=== PATIENT | male | born 1940 | race Caucasian/White ===

== ENCOUNTER 2025-01-04 18:12 | Inpatient (IN) | payer OTHER, SELFPAY ==
[2025-01-04 14:01] VITALS: BP 159/82
[2025-01-04 14:50] LABS: INR 2.07; PT 23.8 Sec (11.4-14.6)
[2025-01-04 14:51] LABS: APTT 33.5 Sec (23.4-35.0)
[2025-01-04 14:55] LABS: ALT (SGPT) 22 U/L (0-50); AST (SGOT) 21 U/L (17-59); Albumin 4.6 g/dl (3.5-5.0); Alkaline Phosphatase 61 U/L (38-126); Blood Urea Nitrogen 22 mg/dl (9-20); Calcium 9.5 mg/dl (8.4-10.2); Carbon Dioxide 27 mmol/L (22-30); Chloride 99 mmol/L (98-107); Glucose 201 mg/dl (70-99); Potassium 3.7 mmol/L (3.5-5.1); Sodium 134 mmol/L (135-145); Total Protein 7.2 g/dl (6.3-8.2); eGFR > 60.00
[2025-01-04 15:26] LABS: Hematocrit 29.7 % (39.0-52.0); Hemoglobin 10.1 g/dL (13.0-18.0); Mean Corp Hgb Conc. 34.0 g/dL (33.0-37.0); Mean Corpuscular Volume 86.8 fL (80.0-94.0); Nucleated Red Blood Cells % 0 % (-); Platelet Count 298 10^3/uL (130-400); Red Cell Dist. Width 14.2 % (11.5-14.5)
--- NOTE | 2025-01-04 16:30 | ED.GENMED ---
History of Present Illness
General
Chief Complaint: Rectal Bleeding
Source: patient
Exam Limitations: none
Time Seen by Provider: 01/04/25 16:29
Nursing documentation reviewed up to this point in time: agreed with
History of Present Illness
History of Present Illness:
84-year-old male with history of TIA, A-fib on Coumadin 5 mg daily, HTN, NIDDM, presents with black stools and lightheadedness. The patient reports that these symptoms started last week. The following day noted black stools. PCP did out pt labs
and recommended stopping eating blueberries, blackberries ('I eat them every, a lot) which he did and the stool went back to regular brown color and has remained brown. Yesterday had walked a mile, felt well but today he's been feeling lightheaded.
Denies CP, SOB, abdominal pain.
He got a call from PCP today telling him his Hgb dropped 3 points from 3 months ago and referred him here for evaluation.
The patient recently had an echocardiogram and electrocardiogram, both reportedly normal. He is currently taking warfarin for atrial fibrillation, with dose adjustments based on INR levels, which was 2.7 on Wednesday at home.
Past History
Past History
ED Past Medical History: Arrthythmia (A-fib on Coumadin), HTN and NIDDM
ED Past Surgical History: Orthopedic
Social History
Tobacco: Non-smoker
Personal:
Living: with family
Employment: Retired
Review of Systems
Review of Systems
Allergies reviewed?: Yes
All Other Systems: ROS reviewed and negative except as documented in HPI and ROS
Phy Exam
Physical Exam
Physical Exam:
GENERAL: No acute distress. A&Ox3.
CONSTITUTIONAL: Afebrile.
EYES: clear, conjunctivae normal
ENMT: moist mucus membranes, Pharynx nl
RESPIRATORY: Regular respirations, nonlabored, lungs clear.
CARDIOVASCULAR: Regular rate and rhythm, no murmurs, no rubs.
GI: Soft, nontender, normal BS
Rectal: Soft brown stool hematest positive
MUSCULOSKELETAL: Moves with ease. Well perfused.
SKIN: Warm, dry, pink
PSYCH: Normal mood and affect. Well kept, interactive and appropriate
NEUROLOGIC: Awake, alert and oriented. No focal neurological deficits
Course
Orders/Labs/Results
Orders:
Orders
01/04/25 14:07
EKG [Electrocardiogram (*1)] Urgent
Reason for Study: Atrial Fibrillation
EKG- Treatment ONCE
01/04/25 14:11
Type+Screen Urgent
Complete Blood Count/With Diff Urgent
Comprehensive Metabolic Panel Urgent
PTT Urgent
Prothrombin Time Urgent
01/04/25 Dinner
Clear Liquid
At Your Request: Limited Participation
Does patient need a safe tray?: No
01/04/25 17:12
GASTROINTESTINAL CONSULT Urgent
Consulting Provider: Natty Krause
Was physician already notified: Yes
Reason for consult: GI bleed stable
01/04/25 17:22
Admit/Transfer Patient As Directed
Co-Sign Provider:
Level of Care: Inpatient admission
Assign to:: Medical/Surgical
Physician / Group: Ferny Morris
Diagnosis: GI bleed
Reason for Hospitalization: GI bleed
Expected length of stay greater than two midnights?: Yes
ELOS- Estimated Length of Stay in days: 3
I certify the patient meets the requirements for IP care: Yes
PRN Pain Medication Management As Directed
May give lesser potent ordered pain med per pt: Yes
preference::
Protocol:: Medication orders for pain may be administered in a
manner that supports deferring to patient preference
when the pt is:
- Requesting an ordered lesser potent pain medication.
Least to most potent pain medications are defined
as: acetaminophen < NSAID < tramadol < opioids
(morphine, oxycodone, hydromorphone).
- Requesting a lesser dose of the same medication IF
ORDERED.
- Requesting a less intrusive route of administration
if both routes are prescribed by the provider (PO <
IV).
01/04/25 17:23
Code Status As Directed
Resuscitation Status: Full Code
01/04/25 18:36
0.9% Sodium Chloride 1000 ml [Nss] 1,000 ml IV 75 mls/hr
Acetaminophen [Tylenol] 650 mg PO Q6HPRN PRN
Atorvastatin [Lipitor] 10 mg PO QPM
Dextrose 50%-Water [Dextrose 50% Syringe] 12.5 grams IV [id number] PRN
Digoxin [Lanoxin] 250 mcg PO QPM
Glucagon [GlucaGen] 1 mg IM PRN PRN
Ondansetron Injectable [Zofran] 4 mg IV Q6HPRN PRN
Tamsulosin [Flomax] 0.4 mg PO QPM
01/04/25 18:36
Activity As Directed
Activity Level: As Tolerated
Bedside Glucose Monitoring As Directed
Frequency: AC&HS
Additional Instructions:: Change to q6h if pt on TPN, tube feeding or not eating
INT (Intravenous Needle Therapy) As Directed
Comment: Place 2 IV catheters of the largest bore possible until stable
Orthostatic Vital Signs As Directed
Orthostatic VS Frequency: Now
Comment: then every four hours for twenty-four hours
Pneumatic Compression Sleeves As Directed
Type: Knee high
Vital Signs As Directed
Frequency: Per unit guidelines
DX Deep Vein Thrombosis Video Routine
01/04/25 19:00
Insulin Aspart Corrective Low [Novolog Flexpen-Low Resistance] See Protocol SC AC
Metformin Extended Release [Glucophage Xr Extended Release] 500 mg PO TID@0800,1200,1700
01/04/25 20:00
Pantoprazole [Protonix IV] 40 mg IV BID
01/04/25 22:00
Amlodipine [Norvasc] 10 mg PO HS
01/04/25 23:00
Complete Blood Count/No Diff Routine
01/05/25 Breakfast
NPO
Allow oral meds: Yes
Allow clear liquids: 4hrs prior to procedure
Comment: may have unrestricted clear liquid up to 4 hrs prior to scheduled procedure
Basic Metabolic Panel IN AM
Complete Blood Count/No Diff IN AM
Glycohemoglobin (HgbA1c) IN AM
01/05/25 08:00
Cyanocobalamin [Vitamin B-12] 1,000 mcg PO DAILY
Vitamin B Complex with C [B COMPLEX w/VITAMIN C] 1 caplet PO DAILY
olmesartan-hydrochlorothiazide [Benicar HCT] 1 tablet PO DAILY
Abnormal Lab Results
01/04/25
14:11
RBC 3.42 L 10^6/uL
(4.70-6.10)
Hgb 10.1 L g/dL
(13.0-18.0)
Hct 29.7 L %
(39.0-52.0)
Monocytes % 10.9 H %
(1.7-9.3)
PT 23.8 H Sec
(11.4-14.6)
Sodium 134 L mmol/L
(135-145)
BUN 22 H mg/dl
(9-20)
Glucose 201 H mg/dl
(70-99)
01/04/25 14:11
01/04/25 14:11
Vital Signs
Initial and Last Documented VS:
Initial Vital Signs
Temp Pulse Resp BP Pulse Ox
97.8 F 89 16 159/82 98
01/04/25 14:01 01/04/25 14:01 01/04/25 14:01 01/04/25 14:01 01/04/25 14:01
Last Documented Vital Signs
Temp Pulse Resp BP Pulse Ox
98.1 F 75 18 175/87 100
01/04/25 18:43 01/04/25 19:55 01/04/25 18:43 01/04/25 18:43 01/04/25 18:43
MDM/Problems Addressed
Differential Diagnosis Includes:
GI bleed, PUD, Coumadin toxicity
MDM/Problems Addressed:
84-year-old male with history of TIA, A-fib on Coumadin 5 mg daily, HTN, NIDDM, presents with black stools and lightheadedness. The patient reports that these symptoms started last week. The following day noted black stools. PCP did out pt labs and
recommended stopping eating blueberries, blackberries ('I eat them every, a lot) which he did and the stool went back to regular brown color and has remained brown. Yesterday had walked a mile, felt well but today he's been feeling lightheaded.
Denies CP, SOB, abdominal pain.
He got a call from PCP today telling him his Hgb dropped 3 points to 9.9 from 3 months ago and referred him here for evaluation.
The patient recently had an echocardiogram and electrocardiogram, both reportedly normal. He is currently taking warfarin for atrial fibrillation, with dose adjustments based on INR levels, which was 2.7 on Wednesday at home.
1615:
CBC: Hemoglobin 10.1
CMP: No clinically significant abnormality
INR 2.07
1700:
Patient is stable
Rectal exam: Brown stool hematest positive
Plan: Admit to hospitalist with GI consult
Blood consent signed and scanned into chart, GI consult in
Hospitalist notified of admission
*Pulse Oximetry
SaO2: 98
Oxygen Mode of Delivery: Room air
Patient hypoxic: no
*EKG
EKG Intrepretation Date: 01/04/25
Interpretation: abnormal
Heart Rate: 82
Rate: normal
Rhythm: a-fib
Rudyard: normal axis
QRS Pattern: normal QRS
Ischemia: no ischemia
*Critical Care Note
Total Time (30-74mins, 75-104mins- exclusive of procedures): Not Applicable
ED Attending Note
-
Portions of this chart may have been created with voice recognition software.� Occasional wrong word or��sound alike� substitutions may have occurred due to the inherent limitations of voice recognition software.
Discharge Plan
Departure
Patient Disposition: Admit
Date of Disposition: 01/04/25
Time of Disposition: 17:02
Admit to: Med/Surg
Presentation/result/management discussed w/ accepting MD/DO: Hospitalist
Condition: Good
Discharge Problem:
GIB (gastrointestinal bleeding)
Interventions
Interventions:
*Risk Screen - Suicide Last Done: 01/04/25 18:36
*General Assessment Last Done: 01/04/25 17:30
*Neglect/Abuse Screening Last Done: 01/04/25 14:01
*ED COVID-19 Vaccine History Last Done: 01/04/25 18:36
*Nursing Disposition Last Done: 01/04/25 18:27
IL-Jgcfef-Ybsdaeoprd Assessment Last Done: 01/04/25 17:30
ED- Cardiac Assessment Last Done: 01/04/25 17:30
ED- Pulmonary Assessment Last Done: 01/04/25 17:30
Discharge Date and Time
Discharge Date/Time: 01/04/25 18:28
[2025-01-04 17:00] VITALS: BP 155/75
--- NOTE | 2025-01-04 17:25 | HPS.HSE ---
Family Physician
-
Family Physician:
Chief Complaint
-
Black stool
History of Present Illness
Patient is a 84-year-old male with past medical history of essential hypertension, hyperlipidemia, history of TIA, history of A-fib on warfarin, nro-rdhyomb-cqofgskll diabetes mellitus, BPH came to ER with episode of melena which started last week.
Patient have history of gastroesophageal reflux in the past and has undergone EGD/colonoscopy few years back which was nonrevealing for any acute issues per verbal report from patient. Last week patient noticed narrowing of stool caliber with
blackish discoloration which cleared for last few days. No associated abdominal pain weight loss night sweats reported. No sonya blood reported.
No history of dizziness/palpitation/syncope. No other cardiopulmonary complaints.
Medical History
Past Medical History
Past Medical History: Reports Other
Additional Past Medical History:
history of essential hypertension, hyperlipidemia, history of TIA, history of A-fib on warfarin, lkj-qlgpryg-jlzqrornw diabetes mellitus, BPH
Past Surgical History: Reports Other
Social History
Tobacco: Non-smoker
Alcohol: Occasional
Drug: None
Personal:
Living: With Family
Family History
Family History: Not pertinent
Allergies / Home Medications
Allergies reflects when Allergies were last updated in [facility].
Home Medications with original date entered in [facility]
Allergy/Medication List:
Allergies
Allergy/AdvReac Type Severity Reaction Status Date / Time
No Known Allergies Allergy Unverified 01/04/25 14:06
Home Medications
acetaminophen 500 mg tablet (Tylenol Extra Strength) 500 mg PO Q6HPRN PRN headache 01/04/25
amlodipine 10 mg tablet (Norvasc) 10 mg PO HS 01/04/25
atorvastatin 10 mg tablet (Lipitor) 10 mg PO QPM 01/04/25
cyanocobalamin (vitamin B-12) 1,000 mcg tablet 1,000 mcg PO DAILY 01/04/25
digoxin 250 mcg (0.25 mg) tablet 250 mcg PO QPM 01/04/25
metformin 500 mg tablet,extended release 24 hr 500 mg PO TID 01/04/25
olmesartan 40 mg-hydrochlorothiazide 25 mg tablet (Benicar HCT) 1 tab PO DAILY 01/04/25
tamsulosin 0.4 mg capsule (Flomax) 0.4 mg PO QPM 01/04/25
vitamin B complex 1 tab PO DAILY 01/04/25
warfarin 2.5 mg tablet 2.5 mg PO MO@189901/04/25
warfarin 5 mg tablet 5 mg PO SUTUWETHFRSA@189901/04/25
Review of Systems
-
A 12 point ROS was completed and negative except as noted: Yes
Physical Exam
Vital Signs
Vital Signs
Temp Pulse Resp BP Pulse Ox
97.8 F 89 16 159/82 98
01/04/25 14:01 01/04/25 14:01 01/04/25 14:01 01/04/25 14:01 01/04/25 16:32
Physical Exam
General: No Apparent Distress
HEENT: Moist mucous membranes and Atraumatic
Respiratory: Clear
Cardiac: S1/S2 and Irregular Rhythm; No Murmur or Rub
GI: Soft, Non Tender and Non Distended; No Organomegaly
Rectal: Deferred by Provider
Musculoskeletal: No Clubbing, No Cyanosis and No Edema
Skin: No Rash
Neuro: Nonfocal/grossly intact
Laboratory Results
-
01/04/25 14:11
01/04/25 14:11
Laboratory Results
PT 23.8 Sec (11.4-14.6) H 01/04/25 14:11
INR 2.07 01/04/25 14:11
APTT 33.5 Sec (23.4-35.0) 01/04/25 14:11
Total Bilirubin 0.9 mg/dl (0.2-1.3) 01/04/25 14:11
AST 21 U/L (17-59) 01/04/25 14:11
ALT 22 U/L (0-50) 01/04/25 14:11
Alkaline Phosphatase 61 U/L (38-126) 01/04/25 14:11
Impression/Plan
-
1. Melena
Upper GI bleed
Exacerbated by warfarin coagulopathy
-Patient noticed melena last week, has cleared
-Stool heme test positive in ER
-No baseline hemoglobin to compare, in ER hemoglobin of 10 MCV of 87
-Patient have history of EGD/colonoscopy although no reported major issues per patient
-Start patient on IV Protonix 40 mg twice daily
-GI consultation
-Maintain on clear liquid diet for nighttime with n.p.o. past midnight
2. Ohl-fqlzwou-ldxggxbcd diabetes mellitus
-Reported diarrhea from metformin dose of which has been decreased recently
-Maintain current dose of metformin 500 mg 3 times daily and insulin sliding scale
3. Permanent A-fib
-INR 2.07, hold warfarin dosing
-Continue on home dose of digoxin
4. Essential hypertension
-Maintained on Norvasc/Benicar home dose
5. BPH
-Continue on Flomax
DVT prophylaxis -SCD
Full code
Total time spent : 79 mins
I personally saw and examined the patient.
I have reviewed all diagnostic interpretations and treatment plans as written.
Time includes patient management by me, time spent at the patients bedside, time to review lab and imaging results, discussing patient care, documentation in the medical record, and time spent with the family or caregiver and discussing care plan
with RN/Consultants.
[2025-01-04 18:20] VITALS: BMI 23.2
[2025-01-04 18:35] VITALS: BMI 22.4
[2025-01-04 18:43] VITALS: BP 175/87; BMI 22.4; BMI 22.5
--- NOTE | 2025-01-04 18:50 | PTCARENOTE ---
Received pt from ED into room 413-1. Pt ambulatory to bed with no assistance. Pt answered all admission questions, reports no questions at this time. Pt oriented to room. Educated pt on use of call mendosa, call mendosa within reach. No further complaints
at this time.
[2025-01-04 19:30] VITALS: BP 149/89; BP 159/82; BP 163/89; PULSE 67; PULSE 78; PULSE 83
[2025-01-04] MEDS: NSS (PRESERVATIVE FREE) 10 ML IV (19:35)
[2025-01-04] MEDS: PROTONIX IV 40 MG IV (19:35)
[2025-01-04] MEDS: FLOMAX 0.4 MG PO (19:36)
[2025-01-04] MEDS: NSS 1000 IV (19:36)
[2025-01-04] MEDS: GLUCOPHAGE XR EXTENDED RELEASE 500 MG PO (19:36)
[2025-01-04] MEDS: LIPITOR 10 MG PO (19:36)
[2025-01-04 19:52] LABS: Glucose - Point of Care 154 mg/dl (70-99)
[2025-01-04] MEDS: LANOXIN 250 MCG PO (19:55)
[2025-01-04 21:57] LABS: Glucose - Point of Care 167 mg/dl (70-99)
[2025-01-04 22:22] VITALS: BP 168/84
[2025-01-04] MEDS: NORVASC 10 MG PO (22:23)
[2025-01-04 23:56] LABS: Hematocrit 28.3 % (39.0-52.0); Hemoglobin 9.8 g/dL (13.0-18.0); Mean Corp Hgb Conc. 34.6 g/dL (33.0-37.0); Mean Corpuscular Volume 87.1 fL (80.0-94.0); Platelet Count 248 10^3/uL (130-400); Red Cell Dist. Width 14.2 % (11.5-14.5)
[2025-01-05 03:29] VITALS: BP 132/81; BP 142/76; BP 153/79; PULSE 70; PULSE 80
[2025-01-05 06:20] LABS: Glucose - Point of Care 184 mg/dl (70-99)
[2025-01-05] MEDS: NOVOLOG FLEXPEN-LOW RESISTANCE 1 UNITS SC ×3 (06:35→17:28)
[2025-01-05] MEDS: NSS 1000 IV (07:37)
[2025-01-05] MEDS: VITAMIN B-12 1000 MCG PO (07:37)
[2025-01-05] MEDS: BENICAR 40 MG PO (07:38)
[2025-01-05] MEDS: GLUCOPHAGE XR EXTENDED RELEASE PO (07:38)
[2025-01-05] MEDS: B COMPLEX w/VITAMIN C 1 CAPLET PO (07:38)
[2025-01-05] MEDS: ORETIC 25 MG PO (07:38)
[2025-01-05] MEDS: PROTONIX IV 40 MG IV ×2 (07:39→20:50)
[2025-01-05] MEDS: NSS (PRESERVATIVE FREE) 10 ML IV ×2 (07:39→20:50)
--- NOTE | 2025-01-05 08:03 | CON.GI ---
Addendum entered and electronically signed by Natty Krause MD 01/05/25 13:29:
I saw and examined the patient.
The SHADE CLASSIFIER or PA's note was reviewed and I agree with the note.
Comment:
This patient is an 84-year-old man with a history of atrial fibrillation on Coumadin, hypertension and hyperlipidemia who was admitted after he had a hemoglobin drop from his baseline 3 months ago. He states that he did notice some black stool last
week for several days but was eating blackberries. He no longer has any bowel changes. He does not have any abdominal pain. He does occasionally have GERD but that is not severe. He has had an upper endoscopy but in the very remote past. He
does not know the results
abd: soft, nontender
impression
melena
hx of UGIB
elevated INR
plan:
egd but INR is too high will trend
PPI bid
ok for diet
follow hgb
Original Note:
Consultation
-
Date/Time Consultation Requested: 01/04/2025 17:00
Date/Time Consultation Performed: 01/05/2025 08:00
Requesting Provider: Kamla Caceres V.
Performing Provider: Natty Krause
Reason for Consultation: GI bleed
Medical History
Chief Complaint / HPI
Chief Complaint: Black stools
History of Present Illness:
Hayder is an 84-year-old man with a past medical history of hypertension, hyperlipidemia, history of TIA, permanent A-fib (on Coumadin), NIDDM, BPH presented to the ED with concerns of melenic stool and hgb drop on outpatient labs.
He reports feeling unwell, diaphoretic, nausea with mild epigastric discomfort on 12/25 after eating a large hamburger meal for lunch. He continued to feel unwell, progressing to weakness and lightheadedness the following day. On 12/27 he had a thin,
black, painless, formed bowel movement which is unusual for him. He noticed no bright red blood. He had no nausea, no vomiting, no fevers no chills, no diarrhea at this time. He continued to feel weak for the rest of the day. Then at the end of
the week felt better, was able to exercise without weakness or lightheadedness, was able to go for a walk and do work around the house without issue. However his stools remained formed, black, thin caliber. He made an appointment on Monday 01/01
with the PCP for continued black stools. He also endorsed eating roughly 1 handful of blueberries and several blackberries every day which he thought may have been contributing to the darkness of the stool. He was told by PCP to stop eating the
berries, and lab work was checked. Following stopping eating the berries, his stools returned to brown color, he continued to feel fine. Then on 01/04 he was contacted by his PCP for hemoglobin drop of 3 g in 3 months and told to come to
the ED. His last dose of Coumadin was evening of 01/03. He endorses no other medication changes, NSAID use, or antacid use.
He reports having an EGD in the past, several years ago though cannot remember when exactly, for symptoms of GERD. Per patient the EGD was unremarkable and there was no follow-up with GI. His last colonoscopy was at the age of 78 and was normal
without polyps.
On admission to the ED he had normal white blood cell count, hemoglobin of 10.1 with MCV 86.8, INR 2.07, slightly elevated BUN at 22, normal LFTs. He was hypertensive 160s/80s, not tachycardic, afebrile.
When seen by me this morning he was comfortable, without complaints of lightheadedness, dizziness, chest pain, shortness of breath, nausea, vomiting, diarrhea. There were no acute events overnight per nursing. He reports 3 small caliber bowel
movements that were brown, easy to pass, without any bright red blood.
Past Medical History
Past Medical History: Other (See HPI)
Past Surgical History: Other (Finger surgery, left knee replacement, skin cancer removal)
Social History
Tobacco: Non-Smoker
Alcohol: Occasional
Drug: None
Personal:
Living: With Family
Family History
Family History: Reviewed & Not Pertinent
Allergies / Home Medications
Allergy/AdvReac Type Severity Reaction Status Date / Time
No Known Allergies Allergy Unverified 01/04/25 14:06
�Medication �Instructions �Recorded
acetaminophen 500 mg tablet 500 mg PO Q6HPRN PRN headache 01/04/25
(Tylenol Extra Strength)
amlodipine 10 mg tablet (Norvasc) 10 mg PO HS Blood Pressure 01/04/25
atorvastatin 10 mg tablet (Lipitor) 10 mg PO QPM High Cholesterol 01/04/25
cyanocobalamin (vitamin B-12) 1,000 mcg PO DAILY Supplement 01/04/25
1,000 mcg tablet
digoxin 250 mcg (0.25 mg) tablet 250 mcg PO QPM Heart 01/04/25
Disease/Condition
metformin 500 mg tablet,extended 500 mg PO TID Gastrointestinal 01/04/25
release 24 hr Issue
olmesartan 40 1 tab PO DAILY Blood Pressure 01/04/25
mg-hydrochlorothiazide 25 mg
tablet (Benicar HCT)
tamsulosin 0.4 mg capsule (Flomax) 0.4 mg PO QPM Urinary Issue 01/04/25
vitamin B complex 1 tab PO DAILY Supplement 01/04/25
warfarin 2.5 mg tablet 2.5 mg PO MO@1900 Blood Clot 01/04/25
Prevention/Tx
warfarin 5 mg tablet 5 mg PO SUTUWETHFRSA@1900 Blood 01/04/25
Clot Prevention/Tx
Review of Systems
-
History Source: Patient
All other systems: A 12 pt ROS was Negative except as stated above in HPI
Vital Signs
Temp Pulse Resp BP Pulse Ox
98.7 F 64 18 168/84 99
01/04/25 22:22 01/04/25 22:23 01/04/25 22:22 01/04/25 22:23 01/04/25 22:22
Physical Exam
Exam
General: Well Developed, Well Nourished, No Apparent Distress and Comfortable
HEENT: Normocephalic, Anicteric, Moist Mucous Membranes and Atraumatic
Respiratory: Clear and Non Labored Respirations; Negative Wheezes, Rales or Rhonchi
Cardiac: S1/S2 and Regular Rhythm; Negative Murmur or Rub
Breast: N/A
GI: Soft, Non Tender, Non Distended and Normal Bowel Sounds
Rectal: Deferred by Provider
Musculoskeletal: No Clubbing, No Cyanosis and No Edema
Skin: Warm and Dry
Neuro: AO x 3
Psych: Calm
Results
WBC 5.5 10^3/uL (4.8-10.8) 01/04/25 22:46
Hgb 9.8 g/dL (13.0-18.0) L 01/04/25 22:46
Hct 28.3 % (39.0-52.0) L 01/04/25 22:46
MCV 87.1 fL (80.0-94.0) 01/04/25 22:46
Plt Count 248 10^3/uL (130-400) 01/04/25 22:46
Absolute Neuts (auto) 3.2 10^3/uL (1.4-6.5) 01/04/25 14:11
PT 23.8 Sec (11.4-14.6) H 01/04/25 14:11
INR 2.07 01/04/25 14:11
APTT 33.5 Sec (23.4-35.0) 01/04/25 14:11
Sodium 134 mmol/L (135-145) L 01/04/25 14:11
Potassium 3.7 mmol/L (3.5-5.1) 01/04/25 14:11
Chloride 99 mmol/L (98-107) 01/04/25 14:11
Carbon Dioxide 27 mmol/L (22-30) 01/04/25 14:11
BUN 22 mg/dl (9-20) H 01/04/25 14:11
Creatinine 1.0 mg/dL (0.7-1.3) 01/04/25 14:11
Calcium 9.5 mg/dl (8.4-10.2) 01/04/25 14:11
Total Bilirubin 0.9 mg/dl (0.2-1.3) 01/04/25 14:11
AST 21 U/L (17-59) 01/04/25 14:11
ALT 22 U/L (0-50) 01/04/25 14:11
Alkaline Phosphatase 61 U/L (38-126) 01/04/25 14:11
Diagnostic Image Results: None.
Prior GI Procedures:
EGD: Last done years ago, we do not have records of this.
Colonoscopy: Last done years ago, we do not have records of this.
Assessment / Plan
-
Hayder is an 84-year-old man with a past medical history of hypertension, hyperlipidemia, history of TIA, permanent A-fib (on Coumadin), NIDDM, BPH presented to the ED with concerns of melenic stool for roughly 5 days without other symptoms and
subsequent 3 g drop in hemoglobin on outpatient labs. He has been continuously taking his Coumadin throughout this time until the evening of 01/03. He was admitted for GI bleed, given IV fluids, given IV PPI twice daily. His hemoglobin admission
was 10.1, subsequent hemoglobins have been 9.8 and today 9.1. He has not had any black stools since arrival to the ED. He has no other symptoms at this time.
#Black Stools
#Suspected UGI Bleed
#Acute Blood Loss Anemia
Differentials include upper GI bleed from peptic/duodenal ulcer vs. gastritis vs. bleeding angioectasia vs. malignancy vs. other
- At this time patient is hemodynamically stable with no signs of further bleeding. Suspect some element of dilutional anemia.
- Continue to monitor H&H
- Transfuse for hemoglobin <7
- c/w IV PPI BID
- Would continue to monitor on telemetry and continue with digoxin in lieu of anticoagulation
- Continue to hold Coumadin and trend INR
- Most recent INR is 2.06, last dose of Coumadin roughly 2 days ago
- Would ideally prefer discontinuation of warfarin for at least 5 days and/or INR of <1.5 prior to scoping
- May need to wait the weekend for INR to decrease with tentative scope on Wednesday
- If scope Wednesday, can eat diet as tolerated with NPO after midnight prior to scope
- GI will follow
-
-
Thank you for consultation and allowing me to participate in the patient's care. Please call the distribution dispatcher GI physician during the after hours with any questions or concerns.
[2025-01-05 08:09] VITALS: BP 169/88
[2025-01-05 08:39] LABS: INR 2.06; PT 23.4 Sec (11.4-14.6)
[2025-01-05 09:14] LABS: Hematocrit 27.1 % (39.0-52.0); Hemoglobin 9.1 g/dL (13.0-18.0); Mean Corp Hgb Conc. 33.6 g/dL (33.0-37.0); Mean Corpuscular Volume 85.5 fL (80.0-94.0); Platelet Count 241 10^3/uL (130-400); Red Cell Dist. Width 14.1 % (11.5-14.5)
[2025-01-05 09:47] LABS: Blood Urea Nitrogen 18 mg/dl (9-20); Calcium 8.9 mg/dl (8.4-10.2); Carbon Dioxide 26 mmol/L (22-30); Chloride 106 mmol/L (98-107); Estimated Creatinine Clearance 56 ml/min; Glucose 157 mg/dl (70-99); Potassium 3.6 mmol/L (3.5-5.1); Sodium 137 mmol/L (135-145); eGFR > 60.00
[2025-01-05 10:01] LABS: Glycohemoglobin (HgbA1c) 7.0 % (4.0-5.6)
--- NOTE | 2025-01-05 10:56 | CM ---
Patient seen bedside w/ spouse, initial assessment completed. Patient is a 84-year-old male with past medical history of essential hypertension, hyperlipidemia, history of TIA, history of A-fib on warfarin, wlm-vuhtveh-phcgumzfe diabetes mellitus,
BPH came to ER with episode of melena.
Patient resides w/ spouse in a single story home, 2 steps to enter from the outside. Patient is independent w/ ambulation, no device required. Independent w/ ADLs and personal care. Patient has a tub grab bar and shower chair. Denies SNF/HC hx. OP
therapy in the past.
Address, point of contact and insurance verified
PCP: Waldemar Palacios
Pharmacy: [facility]
Plan: Anticipating home, no needs
[2025-01-05 11:46] VITALS: BP 153/78; BP 163/78; BP 172/81; PULSE 77; PULSE 80; PULSE 85
[2025-01-05 12:35] LABS: Glucose - Point of Care 174 mg/dl (70-99)
--- NOTE | 2025-01-05 12:41 | W.PN.HOSP.TC ---
Today's Communication/Plan
-
start diabetic diet
f/u inr
f/u dig level
Assessment / Plan
Assessment / Plan
1. Melena
Upper GI bleed
Exacerbated by warfarin coagulopathy
-Patient noticed melena last week, has cleared
-Stool heme test positive in ER
-No baseline hemoglobin to compare, in ER hemoglobin of 10 MCV of 87, remains stable
-Start patient on IV Protonix 40 mg twice daily
-GI evaluated and monitoring patient. Will consider inpatient versus outpatient EGD based on further clinical progression
-Patient started on diabetic diet
2. Vgu-zefmzjr-gkamcilzh diabetes mellitus
-Reported diarrhea from metformin dose of which has been decreased recently
-Maintain current dose of metformin 500 mg 3 times daily and insulin sliding scale
3. Permanent A-fib
-INR 2.07, hold warfarin dosing
-f/u INR
-Check digoxin level, may require further adjustment based on level
4. Essential hypertension
-Maintained on Norvasc/Benicar home dose
5. BPH
-Continue on Flomax
DVT prophylaxis -SCD
Full code
Anticipated Discharge: 24 - 48 hours
Subjective/Interval History
-
Date of Service: January 05, 2025
Resting comfortable in bed
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
Objective Data
-
Labs:
Laboratory Results
01/05/25
08:16
WBC 4.2 L
Hgb 9.1 L
Hct 27.1 L
Plt Count 241
PT 23.4 H
INR 2.06
Sodium 137
Potassium 3.6
Chloride 106
Carbon Dioxide 26
BUN 18
Creatinine 0.9
Glucose 157 H
Calcium 8.9
Vital Signs:
Vital Signs
Temp Pulse Resp BP Pulse Ox
98.2 F 75 18 169/88 99
01/05/25 11:46 01/05/25 08:09 01/05/25 11:46 01/05/25 08:09 01/05/25 11:46
I&O
01/04/25 01/05/25 01/06/25
06:59 06:59 06:59
Intake Total 900 / 900
Balance 900 / 900
Review of Systems
-
Respiratory: Reports No Symptoms
Cardiac: Reports No Symptoms
Abdomen/GI: Reports No Symptoms
Physical Exam
-
General: No Apparent Distress and Comfortable
HEENT: Negative Oxygen
Neuro: Awake, Alert, Oriented, No Motor Deficits and Nonfocal/Grossly Intact
Psych: Calm
[2025-01-05] MEDS: GLUCOPHAGE XR EXTENDED RELEASE 500 MG PO ×2 (13:00→17:27)
[2025-01-05] MEDS: NOVOLOG FLEXPEN-LOW RESISTANCE SC (13:02)
[2025-01-05 15:45] VITALS: BP 144/87; BP 155/84; BP 158/79; PULSE 82; PULSE 87; PULSE 93
[2025-01-05 16:27] LABS: Digoxin 0.9 ng/ml (0.8-2.0)
[2025-01-05 16:52] LABS: Glucose - Point of Care 194 mg/dl (70-99)
[2025-01-05] MEDS: FLOMAX 0.4 MG PO (17:27)
[2025-01-05] MEDS: LIPITOR 10 MG PO (17:27)
[2025-01-05] MEDS: LANOXIN 250 MCG PO (17:27)
[2025-01-05 19:00] VITALS: BP 150/80; BP 155/78; BP 158/76; PULSE 65; PULSE 77; PULSE 88
[2025-01-05] MEDS: NORVASC 10 MG PO (20:50)
[2025-01-05 21:23] LABS: Glucose - Point of Care 187 mg/dl (70-99)
[2025-01-05 23:49] VITALS: BP 133/74
[2025-01-06] MEDS: NSS IV (02:49)
[2025-01-06 07:46] LABS: Glucose - Point of Care 177 mg/dl (70-99)
[2025-01-06] MEDS: NOVOLOG FLEXPEN-LOW RESISTANCE 1 UNITS SC ×3 (07:53→17:48)
[2025-01-06 07:58] VITALS: BP 130/77
[2025-01-06] MEDS: GLUCOPHAGE XR EXTENDED RELEASE 500 MG PO ×3 (08:12→17:49)
[2025-01-06] MEDS: B COMPLEX w/VITAMIN C 1 CAPLET PO (08:12)
[2025-01-06] MEDS: BENICAR 40 MG PO (08:12)
[2025-01-06] MEDS: VITAMIN B-12 1000 MCG PO (08:12)
[2025-01-06] MEDS: NSS (PRESERVATIVE FREE) 10 ML IV ×2 (08:12→19:45)
[2025-01-06] MEDS: ORETIC 25 MG PO (08:12)
[2025-01-06] MEDS: PROTONIX IV 40 MG IV ×2 (08:12→19:45)
[2025-01-06 08:31] LABS: INR 1.71; PT 20.3 Sec (11.4-14.6)
[2025-01-06 09:01] LABS: Hematocrit 29.2 % (39.0-52.0); Hemoglobin 9.9 g/dL (13.0-18.0); Mean Corp Hgb Conc. 33.9 g/dL (33.0-37.0); Mean Corpuscular Volume 87.4 fL (80.0-94.0); Platelet Count 260 10^3/uL (130-400); Red Cell Dist. Width 14.0 % (11.5-14.5)
[2025-01-06 11:39] LABS: Glucose - Point of Care 184 mg/dl (70-99)
--- NOTE | 2025-01-06 11:49 | W.PN.GI.CBS2 ---
Today's Communication / Plan
-
EGD wednesday
Assessment / Plan
-
Hayder is an 84-year-old man with a past medical history of hypertension, hyperlipidemia, history of TIA, permanent A-fib (on Coumadin), NIDDM, BPH presented to the ED with concerns of melenic stool for roughly 5 days without other symptoms and
subsequent 3 g drop in hemoglobin on outpatient labs. He has been continuously taking his Coumadin throughout this time until the evening of 01/03. He was admitted for GI bleed, given IV fluids, given IV PPI twice daily. His hemoglobin admission
was 10.1, subsequent hemoglobins have been 9.8 and today 9.1. He has not had any black stools since arrival to the ED. He has no other symptoms at this time.
#Black Stools
#Suspected UGI Bleed
#Acute Blood Loss Anemia
plan:
holding warfarin
EGD wednesday (INR currently 1.7)
follow hgb which is stable
PPI
Subjective
Subjective
Date of Service: January 06, 2025
Pt w/o any bleeding or abd pain
Objective
Data Reviewed
Laboratory Data:
Laboratory Results
01/06/25 08:00
01/05/25 08:16
Laboratory Results
PT 20.3 Sec (11.4-14.6) H 01/06/25 08:00
INR 1.71 01/06/25 08:00
APTT 33.5 Sec (23.4-35.0) 01/04/25 14:11
Total Bilirubin 0.9 mg/dl (0.2-1.3) 01/04/25 14:11
AST 21 U/L (17-59) 01/04/25 14:11
ALT 22 U/L (0-50) 01/04/25 14:11
Alkaline Phosphatase 61 U/L (38-126) 01/04/25 14:11
Vital Signs and I&O:
Vital Signs
Temp Pulse Resp BP Pulse Ox
97.6 F 76 18 130/77 99
01/06/25 07:58 01/06/25 07:58 01/06/25 07:58 01/06/25 08:12 01/06/25 07:58
I&O
01/05/25 01/06/25 01/07/25
06:59 06:59 06:59
Intake Total 900 / 900 480 / 480
Balance 900 / 900 480 / 480
Physical Exam
Physical Exam
GI: Soft and Non Tender
--- NOTE | 2025-01-06 12:26 | W.PN.HOSP.TC ---
Today's Communication/Plan
-
For EGD on Wednesday
Continue holding warfarin
Monitor hemoglobin
Monitor renal function/electrolytes
Assessment / Plan
Assessment / Plan
1. Melena
Upper GI bleed
Exacerbated by warfarin coagulopathy
-Patient noticed melena last week, has cleared
-Stool heme test positive in ER
-No baseline hemoglobin to compare, in ER hemoglobin of 10 MCV of 87, remains stable
-Start patient on IV Protonix 40 mg twice daily
-Patient started on diabetic diet
-GI is planning for endoscopy on Wednesday
2. Kxk-frtzvyy-xrtvshsey diabetes mellitus
-Reported diarrhea from metformin dose of which has been decreased recently
-Maintain current dose of metformin 500 mg 3 times daily and insulin sliding scale
3. Permanent A-fib
-INR 1.7 today, hold warfarin dosing
- With decreased creatinine clearance there was concern of possible dig toxicity although dig within normal range
4. Essential hypertension
-Maintained on Norvasc/Benicar home dose
5. BPH
-Continue on Flomax
DVT prophylaxis -SCD
Full code
Anticipated Discharge: 24 - 48 hours
Subjective/Interval History
-
Date of Service: January 06, 2025
No reported issues overnight
Stool is getting brown
Objective Data
-
Labs:
Laboratory Results
01/06/25
08:00
WBC 4.4 L
Hgb 9.9 L
Hct 29.2 L
Plt Count 260
PT 20.3 H
INR 1.71
Vital Signs:
Vital Signs
Temp Pulse Resp BP Pulse Ox
97.6 F 76 18 130/77 99
01/06/25 07:58 01/06/25 07:58 01/06/25 07:58 01/06/25 08:12 01/06/25 07:58
I&O
01/05/25 01/06/25 01/07/25
06:59 06:59 06:59
Intake Total 900 / 900 480 / 480
Balance 900 / 900 480 / 480
Review of Systems
-
Respiratory: Reports No Symptoms
Cardiac: Reports No Symptoms
Abdomen/GI: Reports No Symptoms
Physical Exam
-
General: No Apparent Distress and Comfortable
HEENT: Negative Oxygen
Neuro: Awake, Alert, Oriented, No Motor Deficits and Nonfocal/Grossly Intact
Psych: Calm
--- NOTE | 2025-01-06 14:53 | CM ---
CM reviewed chart, care ongoing.
Plan for EGD Monday 01/08.
CM will continue to follow for all discharge planning needs.
Plan; home no needs
[2025-01-06 16:42] VITALS: BP 135/75
[2025-01-06 16:56] LABS: Glucose - Point of Care 176 mg/dl (70-99)
[2025-01-06] MEDS: LIPITOR 10 MG PO (17:49)
[2025-01-06] MEDS: LANOXIN 250 MCG PO (17:49)
[2025-01-06] MEDS: FLOMAX 0.4 MG PO (17:49)
[2025-01-06] MEDS: FLUSH (NSS) 2 FLUSH IV (19:46)
[2025-01-06 21:17] LABS: Glucose - Point of Care 135 mg/dl (70-99)
[2025-01-06] MEDS: NORVASC 10 MG PO (22:37)
[2025-01-06 23:27] VITALS: BP 126/66
[2025-01-07 07:30] VITALS: BP 134/69
[2025-01-07 07:37] LABS: Glucose - Point of Care 168 mg/dl (70-99)
--- NOTE | 2025-01-07 07:53 | W.PN.GI.CBS2 ---
Today's Communication / Plan
-
EGD tomorrow
Assessment / Plan
-
Hayder is an 84-year-old man with a past medical history of hypertension, hyperlipidemia, history of TIA, permanent A-fib (on Coumadin), NIDDM, BPH presented to the ED with concerns of melenic stool for roughly 5 days without other symptoms and
subsequent 3 g drop in hemoglobin on outpatient labs. He has been continuously taking his Coumadin throughout this time until the evening of 01/03. He was admitted for GI bleed, given IV fluids, given IV PPI twice daily. His hemoglobin admission
was 10.1, subsequent hemoglobins have been 9.8 and today 9.1. He has not had any black stools since arrival to the ED. He has no other symptoms at this time.
#Black Stools
#Suspected UGI Bleed
#Acute Blood Loss Anemia
plan:
holding warfarin
EGD wednesday (INR pending)
follow hgb which is stable
PPI
Subjective
Subjective
Date of Service: January 07, 2025
pt with no further bleeding. INR 1.7 yesterday
Objective
Data Reviewed
Laboratory Data:
Laboratory Results
PT 20.3 Sec (11.4-14.6) H 01/06/25 08:00
INR 1.71 01/06/25 08:00
APTT 33.5 Sec (23.4-35.0) 01/04/25 14:11
Total Bilirubin 0.9 mg/dl (0.2-1.3) 01/04/25 14:11
AST 21 U/L (17-59) 01/04/25 14:11
ALT 22 U/L (0-50) 01/04/25 14:11
Alkaline Phosphatase 61 U/L (38-126) 01/04/25 14:11
Vital Signs and I&O:
Vital Signs
Temp Pulse Resp BP Pulse Ox
98.0 F 72 18 126/66 97
01/06/25 23:27 01/06/25 23:27 01/06/25 23:27 01/06/25 23:27 01/06/25 23:27
I&O
01/06/25 01/07/25 01/08/25
06:59 06:59 06:59
Intake Total 480 / 480 1440 / 1440
Balance 480 / 480 1440 / 1440
Physical Exam
Physical Exam
GI: Soft, Non Distended and Non Tender
[2025-01-07] MEDS: B COMPLEX w/VITAMIN C 1 CAPLET PO (08:23)
[2025-01-07] MEDS: GLUCOPHAGE XR EXTENDED RELEASE 500 MG PO ×3 (08:23→16:40)
[2025-01-07] MEDS: PROTONIX IV 40 MG IV ×2 (08:24→20:01)
[2025-01-07] MEDS: ORETIC 25 MG PO (08:24)
[2025-01-07] MEDS: VITAMIN B-12 1000 MCG PO (08:24)
[2025-01-07] MEDS: BENICAR 40 MG PO (08:24)
[2025-01-07] MEDS: NSS (PRESERVATIVE FREE) 10 ML IV ×2 (08:24→20:01)
[2025-01-07] MEDS: NOVOLOG FLEXPEN-LOW RESISTANCE 1 UNITS SC ×3 (08:27→16:41)
[2025-01-07 08:48] LABS: INR 1.25; PT 15.9 Sec (11.4-14.6)
[2025-01-07 09:05] LABS: Blood Urea Nitrogen 18 mg/dl (9-20); Calcium 9.6 mg/dl (8.4-10.2); Carbon Dioxide 28 mmol/L (22-30); Chloride 100 mmol/L (98-107); Estimated Creatinine Clearance 50 ml/min; Glucose 150 mg/dl (70-99); Potassium 3.8 mmol/L (3.5-5.1); Sodium 135 mmol/L (135-145); eGFR > 60.00
[2025-01-07 09:21] LABS: Hematocrit 28.6 % (39.0-52.0); Hemoglobin 9.8 g/dL (13.0-18.0); Mean Corp Hgb Conc. 34.3 g/dL (33.0-37.0); Mean Corpuscular Volume 86.4 fL (80.0-94.0); Platelet Count 238 10^3/uL (130-400); Red Cell Dist. Width 14.1 % (11.5-14.5)
[2025-01-07 11:25] LABS: Glucose - Point of Care 192 mg/dl (70-99)
--- NOTE | 2025-01-07 12:34 | CM ---
CM reviewed chart, care ongoing.
Plan for EGD Monday 01/08.
CM will continue to follow for all discharge planning needs.
Plan; home no needs
--- NOTE | 2025-01-07 12:57 | W.PN.HOSP.TC ---
Today's Communication/Plan
-
f/u hbg level
for EGD tomorrow
Assessment / Plan
Assessment / Plan
1. Melena
Upper GI bleed
Exacerbated by warfarin coagulopathy
-Patient noticed melena last week, has cleared
-Stool heme test positive in ER
-No baseline hemoglobin to compare, in ER hemoglobin of 10 MCV of 87, remains stable
-Start patient on IV Protonix 40 mg twice daily
-Patient started on diabetic diet
-GI is planning for endoscopy on Wednesday
2. Dgh-pwgspgm-jyjukvypi diabetes mellitus
-Reported diarrhea from metformin dose of which has been decreased recently
-Maintain current dose of metformin 500 mg 3 times daily and insulin sliding scale
3. Permanent A-fib
-INR 1.25 today, hold warfarin dosing
- With decreased creatinine clearance there was concern of possible dig toxicity although dig within normal range
4. Essential hypertension
-Maintained on Norvasc/Benicar home dose
5. BPH
-Continue on Flomax
DVT prophylaxis -SCD
Full code
Anticipated Discharge: Within 24 hours
Subjective/Interval History
-
Date of Service: January 07, 2025
Resting comfortably in bed
No reported melena overnight
No issues overnight
Objective Data
-
Labs:
Laboratory Results
01/07/25
07:58
WBC 4.7 L
Hgb 9.8 L
Hct 28.6 L
Plt Count 238
PT 15.9 H
INR 1.25
Sodium 135
Potassium 3.8
Chloride 100
Carbon Dioxide 28
BUN 18
Creatinine 1.0
Glucose 150 H
Calcium 9.6
Vital Signs:
Vital Signs
Temp Pulse Resp BP Pulse Ox
97.7 F 74 16 134/69 99
01/07/25 07:30 01/07/25 07:30 01/07/25 07:30 01/07/25 07:30 01/07/25 07:30
I&O
01/06/25 01/07/25 01/08/25
06:59 06:59 06:59
Intake Total 480 / 480 1440 / 1440
Balance 480 / 480 1440 / 1440
Review of Systems
-
Respiratory: Reports No Symptoms
Cardiac: Reports No Symptoms
Abdomen/GI: Reports No Symptoms
Physical Exam
-
General: No Apparent Distress and Comfortable
HEENT: Negative Oxygen
Neuro: Awake, Alert, Oriented, No Motor Deficits and Nonfocal/Grossly Intact
Psych: Calm
[2025-01-07 15:15] VITALS: BP 139/70
[2025-01-07 16:21] LABS: Glucose - Point of Care 150 mg/dl (70-99)
[2025-01-07] MEDS: LANOXIN 250 MCG PO (16:52)
[2025-01-07] MEDS: LIPITOR 10 MG PO (16:52)
[2025-01-07] MEDS: FLOMAX 0.4 MG PO (16:52)
[2025-01-07] MEDS: SENOKOT 8.6 MG PO (21:29)
[2025-01-07] MEDS: COLACE 100 MG PO (21:29)
[2025-01-07] MEDS: NORVASC 10 MG PO (21:29)
[2025-01-07 21:37] LABS: Glucose - Point of Care 203 mg/dl (70-99)
[2025-01-07 23:36] VITALS: BP 140/67
[2025-01-08] VITALS (16 sets, daily range): BP systolic 18–174; BP diastolic 58–93
[2025-01-08 06:02] LABS: Glucose - Point of Care 160 mg/dl (70-99)
[2025-01-08] MEDS: NOVOLOG FLEXPEN-LOW RESISTANCE 1 UNITS SC ×3 (06:08→17:03)
[2025-01-08] MEDS: B COMPLEX w/VITAMIN C 1 CAPLET PO (07:48)
[2025-01-08] MEDS: ORETIC 25 MG PO (07:49)
[2025-01-08] MEDS: BENICAR 40 MG PO (07:49)
[2025-01-08] MEDS: GLUCOPHAGE XR EXTENDED RELEASE 500 MG PO ×2 (07:49→17:07)
[2025-01-08] MEDS: VITAMIN B-12 1000 MCG PO (07:49)
[2025-01-08] MEDS: NSS (PRESERVATIVE FREE) 10 ML IV ×2 (07:50→20:30)
[2025-01-08] MEDS: COLACE 100 MG PO ×2 (07:50→20:30)
[2025-01-08] MEDS: PROTONIX IV 40 MG IV ×2 (07:50→20:30)
[2025-01-08 10:02] LABS: Blood Urea Nitrogen 15 mg/dl (9-20); Calcium 8.9 mg/dl (8.4-10.2); Carbon Dioxide 28 mmol/L (22-30); Chloride 101 mmol/L (98-107); Estimated Creatinine Clearance 50 ml/min; Glucose 146 mg/dl (70-99); Potassium 3.7 mmol/L (3.5-5.1); Sodium 135 mmol/L (135-145); eGFR > 60.00
[2025-01-08 10:26] LABS: Hematocrit 27.3 % (39.0-52.0); Hemoglobin 9.3 g/dL (13.0-18.0); Mean Corp Hgb Conc. 34.1 g/dL (33.0-37.0); Mean Corpuscular Volume 86.1 fL (80.0-94.0); Platelet Count 203 10^3/uL (130-400); Red Cell Dist. Width 13.6 % (11.5-14.5)
--- NOTE | 2025-01-08 10:26 | CM ---
Possible EGD today per physician. Chart reviewed and plan is to home no needs when stable.
Plan; Home when stable.
[2025-01-08 11:07] LABS: Glucose - Point of Care 180 mg/dl (70-99)
--- NOTE | 2025-01-08 11:13 | PTCARENOTE ---
report given to Penelope in GI lab prior to sending pt down for EGD. blood sugar 180 before leaving floor- 1 unit novolog given per protocol. VSS except BP elevated at 174/92. chart sent down with pt. plan of care ongoing.
[2025-01-08] MEDS: GLUCOPHAGE XR EXTENDED RELEASE PO (12:16)
--- NOTE | 2025-01-08 12:44 | PTCARENOTE ---
pt rec'd from PACU s/p EGD. vss. 2L O2 upon arrival, weaned down to room air. pt AAOx3. plan of care ongoing.
[2025-01-08] MEDS: OMNIPAQUE 50 ML PO (12:45)
--- NOTE | 2025-01-08 14:24 | W.PN.HOSP.TC ---
Today's Communication/Plan
-
EUS and CT imaging
Holding coumadin until cleared by GI
Assessment / Plan
Assessment / Plan
#Melena
Upper GI bleed
Exacerbated by warfarin coagulopathy
-EGD - Large submucosal lesion in fundus.
-CT imaging and EUS tomorrow
-Holding coumadin
# Mwi-lglotkl-vulfxvnai diabetes mellitus
-Reported diarrhea from metformin dose of which has been decreased recently
-Maintain current dose of metformin 500 mg 3 times daily and insulin sliding scale
# Permanent A-fib
-INR 1.25 today, hold warfarin dosing
-dig
4. Essential hypertension
-Maintained on Norvasc/Benicar home dose
5. BPH
-Continue on Flomax
DVT prophylaxis -SCD
Full code
Total time spent on today's encounter was 51 minutes which included time spent in counseling the patient/family regarding diagnosis and treatment plan as listed above, goals of care, and symptom management. Case was discussed with nursing staff,
specialists, and care coordinators/case management. All labs and imaging personally reviewed by me. Remainder the time spent in detailed review of previous records, lab data, imaging, and other medical provider documentation.
Anticipated Discharge: 24 - 48 hours
Subjective/Interval History
-
Date of Service: January 08, 2025
egd today
Objective Data
-
Labs:
Laboratory Results
01/08/25
08:30
WBC 4.0 L
Hgb 9.3 L
Hct 27.3 L
Plt Count 203
Sodium 135
Potassium 3.7
Chloride 101
Carbon Dioxide 28
BUN 15
Creatinine 1.0
Glucose 146 H
Calcium 8.9
Vital Signs:
Vital Signs
Temp Pulse Resp BP Pulse Ox
97.5 F 87 16 141/93 100
01/08/25 12:43 01/08/25 12:43 01/08/25 12:43 01/08/25 12:43 01/08/25 12:43
I&O
01/07/25 01/08/25 01/09/25
06:59 06:59 06:59
Intake Total 1440 / 1440 480 / 480 960 / 960
Balance 1440 / 1440 480 / 480 960 / 960
Review of Systems
-
Respiratory: Reports No Symptoms
Cardiac: Reports No Symptoms
Abdomen/GI: Reports No Symptoms
Data Reviewed
-
Medical Tests (Nuc Med, Echo etc): Report Reviewed by me
Labs: Labs Reviewed by me
[2025-01-08 16:45] LABS: Glucose - Point of Care 157 mg/dl (70-99)
[2025-01-08] MEDS: FLOMAX 0.4 MG PO (17:05)
[2025-01-08] MEDS: LANOXIN 250 MCG PO (17:05)
[2025-01-08] MEDS: LIPITOR 10 MG PO (17:06)
[2025-01-08 21:28] LABS: Glucose - Point of Care 188 mg/dl (70-99)
[2025-01-08] MEDS: NORVASC 10 MG PO (21:49)
[2025-01-08] MEDS: SENOKOT 8.6 MG PO (21:49)
[2025-01-09] VITALS (7 sets, daily range): BP systolic 14–158; BP diastolic 51–83
[2025-01-09 06:02] LABS: Glucose - Point of Care 182 mg/dl (70-99)
[2025-01-09] MEDS: NOVOLOG FLEXPEN-LOW RESISTANCE 1 UNITS SC ×3 (06:03→16:08)
[2025-01-09] MEDS: GLUCOPHAGE XR EXTENDED RELEASE 500 MG PO ×3 (08:26→16:07)
[2025-01-09] MEDS: B COMPLEX w/VITAMIN C 1 CAPLET PO (08:26)
[2025-01-09] MEDS: COLACE 100 MG PO ×2 (08:26→19:44)
[2025-01-09] MEDS: PROTONIX IV 40 MG IV ×2 (08:27→19:43)
[2025-01-09] MEDS: NSS (PRESERVATIVE FREE) 10 ML IV ×2 (08:27→19:44)
[2025-01-09] MEDS: ORETIC 25 MG PO (08:27)
[2025-01-09] MEDS: VITAMIN B-12 1000 MCG PO (08:27)
[2025-01-09] MEDS: BENICAR 40 MG PO (08:28)
[2025-01-09 09:01] LABS: ALT (SGPT) 17 U/L (0-50); AST (SGOT) 16 U/L (17-59); Albumin 3.7 g/dl (3.5-5.0); Alkaline Phosphatase 57 U/L (38-126); Blood Urea Nitrogen 15 mg/dl (9-20); Calcium 9.0 mg/dl (8.4-10.2); Carbon Dioxide 29 mmol/L (22-30); Chloride 101 mmol/L (98-107); Estimated Creatinine Clearance 50 ml/min; Glucose 145 mg/dl (70-99); Potassium 3.9 mmol/L (3.5-5.1); Sodium 135 mmol/L (135-145); Total Protein 6.0 g/dl (6.3-8.2); eGFR > 60.00
[2025-01-09 10:18] LABS: Hematocrit 27.1 % (39.0-52.0); Hemoglobin 9.0 g/dL (13.0-18.0); Mean Corp Hgb Conc. 33.2 g/dL (33.0-37.0); Mean Corpuscular Volume 86.9 fL (80.0-94.0); Platelet Count 217 10^3/uL (130-400); Red Cell Dist. Width 13.8 % (11.5-14.5)
[2025-01-09 11:33] LABS: Glucose - Point of Care 188 mg/dl (70-99)
--- NOTE | 2025-01-09 13:56 | W.PN.HOSP.TC ---
Today's Communication/Plan
-
EUS today
Assessment / Plan
Assessment / Plan
#Melena
Upper GI bleed
Exacerbated by warfarin coagulopathy
-EGD - Large submucosal lesion in fundus.
-CT imaging: Rounded mass within the gastric lumen measuring 8.4 x 5.6 x 5.5 cm in size. This is submucosal in location and does not clearly extend beyond the confines of the gastric wall. The mass does appear to act as a lead point and causes a
degree of gastrogastric intussusception. However, no evidence for obstruction with normal contrast passage from the stomach into the small bowel and colon.
-EUS today
-Holding coumadin
# Xcs-vzfqfia-jgbmiiacu diabetes mellitus
-Reported diarrhea from metformin dose of which has been decreased recently
-Maintain current dose of metformin 500 mg 3 times daily and insulin sliding scale
# Permanent A-fib
- hold warfarin dosing
-dig
#Essential hypertension
-Maintained on Norvasc/Benicar home dose
# BPH
-Continue on Flomax
DVT prophylaxis -SCD
Full code
Total time spent on today's encounter was 52 minutes which included time spent in counseling the patient/family regarding diagnosis and treatment plan as listed above, goals of care, and symptom management. Case was discussed with nursing staff,
specialists, and care coordinators/case management. All labs and imaging personally reviewed by me. Remainder the time spent in detailed review of previous records, lab data, imaging, and other medical provider documentation.
Anticipated Discharge: 24 - 48 hours
Subjective/Interval History
-
Date of Service: January 09, 2025
EUS today
Objective Data
-
Labs:
Laboratory Results
01/09/25
07:19
WBC 4.9
Hgb 9.0 L
Hct 27.1 L
Plt Count 217
Sodium 135
Potassium 3.9
Chloride 101
Carbon Dioxide 29
BUN 15
Creatinine 1.0
Glucose 145 H
Calcium 9.0
Total Bilirubin 0.7
AST 16 L
ALT 17
Alkaline Phosphatase 57
Vital Signs:
Vital Signs
Temp Pulse Resp BP Pulse Ox
98.3 F 77 18 151/80 98
01/09/25 07:25 01/09/25 08:27 01/09/25 07:25 01/09/25 08:27 01/09/25 08:30
I&O
01/08/25 01/09/25 01/10/25
06:59 06:59 06:59
Intake Total 480 / 480 1919
Balance 480 / 480 1919
Review of Systems
-
Respiratory: Reports No Symptoms
Cardiac: Reports No Symptoms
Abdomen/GI: Reports No Symptoms
Data Reviewed
-
Medical Tests (Nuc Med, Echo etc): Report Reviewed by me
Labs: Labs Reviewed by me
--- NOTE | 2025-01-09 15:00 | CM ---
Home with spouse when stable
Plan; Home with spouse.
[2025-01-09 16:07] LABS: Glucose - Point of Care 170 mg/dl (70-99)
[2025-01-09 17:56] LABS: Glucose - Point of Care 144 mg/dl (70-99)
[2025-01-09 18:28] LABS: Glucose - Point of Care 144 mg/dl (70-99)
[2025-01-09] MEDS: FLOMAX 0.4 MG PO (18:31)
[2025-01-09] MEDS: LIPITOR 10 MG PO (18:31)
[2025-01-09] MEDS: LANOXIN 250 MCG PO (18:32)
[2025-01-09] MEDS: NOVOLOG FLEXPEN-LOW RESISTANCE SC (18:39)
[2025-01-09] MEDS: NORVASC 10 MG PO (21:59)
[2025-01-09] MEDS: SENOKOT 8.6 MG PO (21:59)
[2025-01-10 06:57] LABS: Glucose - Point of Care 167 mg/dl (70-99)
[2025-01-10 07:25] VITALS: BP 122/63
[2025-01-10 07:36] LABS: ALT (SGPT) 16 U/L (0-50); AST (SGOT) 15 U/L (17-59); Albumin 3.6 g/dl (3.5-5.0); Alkaline Phosphatase 61 U/L (38-126); Blood Urea Nitrogen 18 mg/dl (9-20); Calcium 9.0 mg/dl (8.4-10.2); Carbon Dioxide 28 mmol/L (22-30); Chloride 103 mmol/L (98-107); Estimated Creatinine Clearance 46 ml/min; Glucose 150 mg/dl (70-99); Potassium 3.7 mmol/L (3.5-5.1); Sodium 135 mmol/L (135-145); Total Protein 5.9 g/dl (6.3-8.2); eGFR > 60.00
[2025-01-10 08:14] LABS: Hematocrit 26.3 % (39.0-52.0); Hemoglobin 8.8 g/dL (13.0-18.0); Mean Corp Hgb Conc. 33.5 g/dL (33.0-37.0); Mean Corpuscular Volume 86.5 fL (80.0-94.0); Platelet Count 206 10^3/uL (130-400); Red Cell Dist. Width 13.8 % (11.5-14.5)
[2025-01-10] MEDS: NOVOLOG FLEXPEN-LOW RESISTANCE 1 UNITS SC (09:09)
[2025-01-10] MEDS: ORETIC 25 MG PO (09:10)
[2025-01-10] MEDS: VITAMIN B-12 1000 MCG PO (09:11)
[2025-01-10] MEDS: NSS (PRESERVATIVE FREE) 10 ML IV (09:11)
[2025-01-10] MEDS: GLUCOPHAGE XR EXTENDED RELEASE 500 MG PO ×2 (09:11→12:19)
[2025-01-10] MEDS: COLACE 100 MG PO (09:11)
[2025-01-10] MEDS: B COMPLEX w/VITAMIN C 1 CAPLET PO (09:11)
[2025-01-10] MEDS: BENICAR 40 MG PO (09:11)
[2025-01-10] MEDS: FLUSH (NSS) 1 FLUSH IV (09:12)
[2025-01-10] MEDS: PROTONIX IV 40 MG IV (09:12)
[2025-01-10 10:22] VITALS: BMI 22.5
[2025-01-10 11:30] VITALS: BP 120/60
[2025-01-10 11:51] LABS: Glucose - Point of Care 220 mg/dl (70-99)
[2025-01-10] MEDS: NOVOLOG FLEXPEN-LOW RESISTANCE 2 UNITS SC (12:19)
--- NOTE | 2025-01-10 13:00 | CM ---
Addendum entered by Junie Fagan 01/10/25 13:10:
IMM signed and placed on chart.
Original Note:
Pt seen at bedside. No changes to discharge plan. Is discharged. Will be transported home via car with
Plan: Home with no needs
--- NOTE | 2025-01-10 13:16 | W.PN.GI.CBS2 ---
Today's Communication / Plan
-
Await pathology from EUS. Dr Zaragoza to alert of results
Referred to oncology OP basis
C/w PPI daily
OK from GI perspective for hosp d/c today
Assessment / Plan
-
Hayder is an 84-year-old man with a past medical history of hypertension, hyperlipidemia, history of TIA, permanent A-fib (on Coumadin), NIDDM, BPH presented to the ED with concerns of melenic stool for roughly 5 days without other symptoms and
subsequent 3 g drop in hemoglobin on outpatient labs. He has been continuously taking his Coumadin throughout this time until the evening of 01/03. He was admitted for GI bleed, given IV fluids, given IV PPI twice daily. His hemoglobin admission
was 10.1, subsequent hemoglobins have been 9.8 and today 9.1. He has not had any black stools since arrival to the ED. He has no other symptoms at this time.
Impression
#Black Stools
#Suspected UGI Bleed from gastric mass
#Acute Blood Loss Anemia
Recommendations
- Tolerating regular diet
- Ok to resume coumadin Wednesday AM
- Await bx results Dr Zaragoza to call
- C/w PPI daily basis
- Referred to oncologist OP basis Dr Guerrero
Ok from GI perspective for hosp d/c
Will sign off please call for ?
Subjective
Subjective
Date of Service: January 10, 2025
Feels well. Denies nausea/vomiting abd pain. His bedside
Objective
Data Reviewed
Laboratory Data:
Laboratory Results
01/10/25 06:42
01/10/25 06:42
Laboratory Results
PT 15.9 Sec (11.4-14.6) H 01/07/25 07:58
INR 1.25 01/07/25 07:58
APTT 33.5 Sec (23.4-35.0) 01/04/25 14:11
Total Bilirubin 0.6 mg/dl (0.2-1.3) 01/10/25 06:42
AST 15 U/L (17-59) L 01/10/25 06:42
ALT 16 U/L (0-50) 01/10/25 06:42
Alkaline Phosphatase 61 U/L (38-126) 01/10/25 06:42
Vital Signs and I&O:
Vital Signs
Temp Pulse Resp BP Pulse Ox
98.6 F 76 16 122/63 97
01/10/25 07:25 01/10/25 09:10 01/10/25 07:25 01/10/25 09:10 01/10/25 09:08
I&O
01/09/25 01/10/25 01/11/25
06:59 06:59 06:59
Intake Total 1919 240 / 240
Balance 1919 240 / 240
Physical Exam
Physical Exam
GEN: No acute distress, conversant, pleasant
HEENT: anicteric, extraocular movements intact, clear oropharynx without exudates
GI: soft, non distended not tender to palpation, normal active bowel sounds, no hepatosplenomegaly
EXT: warm, well perfused, trace edema bilaterally
NEURO: AAOx3, non-focal
--- NOTE | 2025-01-10 13:44 | W.PN.HOSP.TC ---
Addendum entered and electronically signed by Nain Holbrook MD 01/11/25 16:47:
holding coumadin for 48 hours post procedure;
[id number]
Original Note:
Today's Communication/Plan
-
F/u path results outpt
f/u PCP, GI, Onc, Surg outpt
Assessment / Plan
Assessment / Plan
#Melena
Upper GI bleed
Exacerbated by warfarin coagulopathy
-EGD - Large submucosal lesion in fundus.
-CT imaging: Rounded mass within the gastric lumen measuring 8.4 x 5.6 x 5.5 cm in size. This is submucosal in location and does not clearly extend beyond the confines of the gastric wall. The mass does appear to act as a lead point and causes a
degree of gastrogastric intussusception. However, no evidence for obstruction with normal contrast passage from the stomach into the small bowel and colon.
-EUS 01/09, biopsy taken
� Follow-up with oncology, surgery outpatient
� GI will call patient with pathology results
-Holding coumadin 8 hours of procedure; can resume evening of 01/11
# Tlj-oxmcqcr-mzbkqjbxv diabetes mellitus
-Reported diarrhea from metformin dose of which has been decreased recently
-Maintain current dose of metformin 500 mg 3 times daily and insulin sliding scale
# Permanent A-fib
- hold warfarin dosing
-dig
#Essential hypertension
-Maintained on Norvasc/Benicar home dose
# BPH
-Continue on Flomax
DVT prophylaxis -SCD
Full code
More than 30 minutes spent in discharge including
Final examination of the patient
Summarizing hospital stay
Instructions for continuing care to all relevant caregivers
Preparation of discharge records, prescriptions, and referral forms
Total time spent (in minutes): 36
Anticipated Discharge: Today
Subjective/Interval History
-
Date of Service: January 10, 2025
No acute events overnight
Objective Data
-
Labs:
Laboratory Results
01/10/25
06:42
WBC 6.3
Hgb 8.8 L
Hct 26.3 L
Plt Count 206
Sodium 135
Potassium 3.7
Chloride 103
Carbon Dioxide 28
BUN 18
Creatinine 1.1
Glucose 150 H
Calcium 9.0
Total Bilirubin 0.6
AST 15 L
ALT 16
Alkaline Phosphatase 61
Vital Signs:
Vital Signs
Temp Pulse Resp BP Pulse Ox
98.6 F 76 16 122/63 97
01/10/25 07:25 01/10/25 09:10 01/10/25 07:25 01/10/25 09:10 01/10/25 09:08
I&O
01/09/25 01/10/25 01/11/25
06:59 06:59 06:59
Intake Total 1919 240 / 240
Balance 1919 240 / 240
Review of Systems
-
Respiratory: Reports No Symptoms
Cardiac: Reports No Symptoms
Abdomen/GI: Reports No Symptoms
Physical Exam
-
General: No Apparent Distress and Comfortable
HEENT: Negative Oxygen
Neuro: Awake, Alert, Oriented, No Motor Deficits and Nonfocal/Grossly Intact
Psych: Calm
Data Reviewed
-
Medical Tests (Nuc Med, Echo etc): Report Reviewed by me
Labs: Labs Reviewed by me
--- NOTE | 2025-01-10 13:47 | W.DS.TRANS ---
DC Summary - [facility]
-
Discharge Instructions:
Sleep Apnea Risk Intermediate
Discharge Diagnosis/Procedures Rounded mass within the gastric lumen measuring
8.4 x 5.6 x 5.5 cm in size.
Diet Low Cholesterol,Low Fat
Activity As tolerated
Blood Work cbc and cmp in 1 week with pcp
Others Tests as per GI and Oncology outpatient
Instructions:
Stand-Alone Forms:
Changes to Home Medications: Yes
Discharge Medications:
DC Medications w/original date entered in [employer]
acetaminophen 500 mg tablet (Tylenol Extra Strength) 500 mg PO Q6HPRN PRN headache 01/04/25
amlodipine 10 mg tablet (Norvasc) 10 mg PO HS Blood Pressure 01/04/25
atorvastatin 10 mg tablet (Lipitor) 10 mg PO QPM High Cholesterol 01/04/25
cyanocobalamin (vitamin B-12) 1,000 mcg tablet 1,000 mcg PO DAILY Supplement 01/04/25
digoxin 250 mcg (0.25 mg) tablet 250 mcg PO QPM Heart Disease/Condition 01/04/25
metformin 500 mg tablet,extended release 24 hr 500 mg PO TID Gastrointestinal Issue 01/04/25
olmesartan 40 mg-hydrochlorothiazide 25 mg tablet (Benicar HCT) 1 tab PO DAILY Blood Pressure 01/04/25
tamsulosin 0.4 mg capsule (Flomax) 0.4 mg PO QPM Urinary Issue 01/04/25
vitamin B complex 1 tab PO DAILY Supplement 01/04/25
warfarin 2.5 mg tablet 2.5 mg PO MO@1900 Blood Clot Prevention/Tx 01/04/25
warfarin 5 mg tablet 5 mg PO SUTUWETHFRSA@1900 Blood Clot Prevention/Tx 01/04/25
Held on 01/10/25. Instructions: Resume on 01/11/25.
pantoprazole 40 mg tablet,delayed release 40 mg PO DAILY 30 days #30 tabs 01/10/25
Home Medication Changes
warfarin 5 mg tablet 5 mg PO SUTUWETHFRSA@1900 Blood Clot Prevention/Tx 01/04/25
Held on 01/10/25. Instructions: Resume on 01/11/25.
pantoprazole 40 mg tablet,delayed release 40 mg PO DAILY 30 days #30 tabs 01/10/25
Pending Results: No
--- NOTE | 2025-01-15 08:12 | PN.CDI ---
CDI
- -
CDI:
Physician Documentation Request
Admit Date: 01/04/25 18:12
Dear Doctor Zaragoza,
Please review the following and provide your response in the progress notes.
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
Coding guidelines state that we cannot code from a pathology report without physician confirmation
If you feel this is a clinically relevant diagnosis, can you please document it on the record?
Use of terms such as suspected, likely, concern for, or probable (associated with a specific diagnosis that is being evaluated, monitored, or treated as if it exists) are acceptable and can be coded in the inpatient setting, when documented at the
time of discharge.
Thank you,
LACI Silveira CCS
Inpatient [facility] Tender
Please use your independent medical judgment in providing your response.
--- NOTE | 2025-01-19 15:52 | W.PN.UPDATE ---
Update Note
Progress Note Update
entry for coding purposes.
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
== END 2025-01-10 13:50 | disposition home or self-care (01) | DRG 375 ==
LOC: 4 EAST ACU 18:12
PROVIDERS: Internal Medicine Gastroenterology; Nurse Practitioner Family; Student in an Organized Health Care Education/Training Program; ADMITTING PHYSICIAN Hospitalist; ATTENDING PHYSICIAN Internal Medicine; CONSULT PHYSICIAN Internal Medicine; EMERGENCY PHYSICIAN Student in an Organized Health Care Education/Training Program; FAMILY PHYSICIAN Internal Medicine
PROC: 0DB68ZX Excision of Stomach, Via Natural or Artificial Opening Endoscopic, Diagnostic (ICD-10-PCS; 2025-01-08)
PROC: 0DB78ZX Excision of Stomach, Pylorus, Via Natural or Artificial Opening Endoscopic, Diagnostic (ICD-10-PCS; 2025-01-08)
PROC: 0D968ZX Drainage of Stomach, Via Natural or Artificial Opening Endoscopic, Diagnostic (ICD-10-PCS; 2025-01-09)
DX: C49.A2 Gastrointestinal stromal tumor of stomach (principal); D62 Acute posthemorrhagic anemia; K92.1 Melena; I48.21 Permanent atrial fibrillation; D68.32 Hemorrhagic disorder due to extrinsic circulating anticoagulants; D49.0 Neoplasm of unspecified behavior of digestive system; I10 Essential (primary) hypertension; E11.9 Type 2 diabetes mellitus without complications; N40.0 Benign prostatic hyperplasia without lower urinary tract symptoms; K21.9 Gastro-esophageal reflux disease without esophagitis; E78.5 Hyperlipidemia, unspecified; K31.89 Other diseases of stomach and duodenum; K86.9 Disease of pancreas, unspecified; Z96.652 Presence of left artificial knee joint; Z85.828 Personal history of other malignant neoplasm of skin; Z79.84 Long term (current) use of oral hypoglycemic drugs; Z79.01 Long term (current) use of anticoagulants; Z86.73 Personal history of transient ischemic attack (TIA), and cerebral infarction without residual deficits
CPT/HCPCS: 74177; 80048; 80053; 80162; 82962; 83036; 85025; 85027; 85610; 85730; 86850; 86870; 86880; 86900; 86901; 88173; 88305; 88341; 88342; 93005; 99284; Q9967

== ENCOUNTER → 2025-01-25 12:47 | Outpatient (REF) | payer OTHER, SELFPAY ==
[2025-01-25 12:49] LABS: Glucose 126 mg/dl (70-99)
== END ==
LOC: PET 12:47
PROVIDERS: ATTENDING PHYSICIAN Internal Medicine Hematology & Oncology
DX: C49.A2 Gastrointestinal stromal tumor of stomach (principal); D50.0 Iron deficiency anemia secondary to blood loss (chronic)
CPT/HCPCS: 36415; 78815; 82947; A9552

== ENCOUNTER → 2025-02-22 09:49 | Outpatient (REF) | payer OTHER, SELFPAY | LOC: RAD 09:49 | PROVIDERS: ATTENDING PHYSICIAN Internal Medicine Hematology & Oncology; FAMILY PHYSICIAN Internal Medicine | DX: I82.621 Acute embolism and thrombosis of deep veins of right upper extremity (principal); C49.A2 Gastrointestinal stromal tumor of stomach; D50.0 Iron deficiency anemia secondary to blood loss (chronic) | CPT/HCPCS: 93971 ==

== ENCOUNTER 2025-02-23 09:46 | Inpatient (IN) | payer OTHER, SELFPAY ==
[2025-02-13 09:00] LABS: INR 2.31; PT 25.4 Sec (11.4-14.6)
[2025-02-13 09:01] LABS: APTT 41.1 Sec (23.4-35.0)
[2025-02-13 09:20] LABS: ALT (SGPT) 16 U/L (0-50); AST (SGOT) 18 U/L (17-59); Albumin 4.3 g/dl (3.5-5.0); Alkaline Phosphatase 72 U/L (38-126); Blood Urea Nitrogen 18 mg/dl (9-20); Calcium 9.5 mg/dl (8.4-10.2); Carbon Dioxide 30 mmol/L (22-30); Chloride 101 mmol/L (98-107); Glucose 149 mg/dl (70-99); Potassium 3.7 mmol/L (3.5-5.1); Sodium 140 mmol/L (135-145); Total Protein 6.9 g/dl (6.3-8.2); eGFR > 60.00
[2025-02-13 09:37] LABS: Hematocrit 30.3 % (39.0-52.0); Hemoglobin 9.4 g/dL (13.0-18.0); Mean Corp Hgb Conc. 31.0 g/dL (33.0-37.0); Mean Corpuscular Volume 82.3 fL (80.0-94.0); Platelet Count 240 10^3/uL (130-400); Red Cell Dist. Width 17.1 % (11.5-14.5)
[2025-02-13 14:09] VITALS: BMI 22.8
--- NOTE | 2025-02-20 08:58 | PTCARENOTE ---
Abnormal PT 25.4, INR 2.31, PTT 41.1 collected 02/13/25 [address] to Brynn at Dr Elizondo's office.
--- NOTE | 2025-02-20 16:12 | PTCARENOTE ---
Patient @ outpatient infusion- stated IV site from previous infusion red- to be evaluated by infusion provider. Patient stated provider may want to rx antibiotics- instructed patient to have have provider (or patient) contact surgeon regarding
outcome.
[2025-02-23] VITALS (17 sets, daily range): BP systolic 75–160; BP diastolic 40–85; BMI 22.8
[2025-02-23 10:20] LABS: Glucose - Point of Care 157 mg/dl (70-99)
[2025-02-23] MEDS: TYLENOL 1000 MG PO (10:44)
[2025-02-23] MEDS: HEPARIN 5000 UNITS SC ×2 (10:45→20:35)
[2025-02-23] MEDS: NEURONTIN 300 MG PO (10:45)
[2025-02-23] MEDS: NORMOSOL-R/PLASMALYTE-A 1000 IV (11:06)
[2025-02-23 12:44] LABS: B.E. - POC 2.1 mmol/L; Glucose - POC 150 mg/dl (70-99); HCO3 - POC 27 mmol/L (21-28); Hematocrit - POC 28 % PCV (42-52); Hemodilution- POC Yes; Hemoglobin Calculated - POC 9.4; Ionized Calcium - POC 1.15 mmol/L (1.15-1.33); Lactate - POC 0.92 mmol/L (0.36-0.75); O2 Saturation %Calculated-POC 99.8 % (94-98); PCO2 - POC 42 mmHg (35-48); PO2 - POC 229 mmHg (83-108); Potassium - POC 3.5 mmol/L (3.5-5.1); Sodium - POC 134 mmol/L (136-145); Specimen Type - POC Arterial; pH - POC 7.42 (7.35-7.45)
[2025-02-23 14:24] LABS: B.E. - POC 0.9 mmol/L; Glucose - POC 196 mg/dl (70-99); HCO3 - POC 26 mmol/L (21-28); Hematocrit - POC 30 % PCV (42-52); Hemodilution- POC Yes; Hemoglobin Calculated - POC 10.0; Ionized Calcium - POC 1.14 mmol/L (1.15-1.33); Lactate - POC 0.79 mmol/L (0.36-0.75); O2 Saturation %Calculated-POC 99.7 % (94-98); PCO2 - POC 45 mmHg (35-48); PO2 - POC 217 mmHg (83-108); Potassium - POC 3.6 mmol/L (3.5-5.1); Sodium - POC 135 mmol/L (136-145); Specimen Type - POC Arterial; pH - POC 7.37 (7.35-7.45)
[2025-02-23 15:28] LABS: Glucose - Point of Care 225 mg/dl (70-99)
[2025-02-23] MEDS: NEO-SYNEPHRINE 250 IV (15:42)
[2025-02-23] MEDS: NOVOLOG vial 2 UNITS SC (15:54)
--- NOTE | 2025-02-23 15:54 | W.PN.UPDATE ---
Addendum entered and electronically signed by Aline Faulkner MD 02/23/25 16:29:
strict NPO per Dr. Elizondo - will hold flomax and digoxin
Original Note:
Update Note
Progress Note Update
This is an addendum to medical consultation. written by SENIOR PAYROLL ADMINISTRATOR Jeannette Alexander
I saw and examined the patient.
The SENIOR PAYROLL ADMINISTRATOR's note was reviewed and I agree with the note.
Comment:
Mr. 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 Elizondo
this afternoon with post-op course complicated by hypotension. Patient had 270cc blood loss during OR. Patient required phenylephrine post-op.
Patient states he is feeling well. Denies pain, reporting hunger. No chest pain or shortness of breath.
On exam he is comfortable, NRB on post-op. NGT in with bloody drainge. Chest clear; CV: S1, S2, RRR; Abdomen with gauze c/d/i. No LE swelling.
GIST s/p partial Gastretctomy
-patient admitted to IMU
-post-op surgical care per Dr. Elizondo
-NGT, NPO, IVF
-Pepcid BID
-pain control
-270cc blood loss during OR; follow up post-op labs. Patient has transfusion consent form signed.
Post-op Hypotension
-s/p 3L fluid resuscitation, suspect 2/2 effect from anesthesia. Phenylephrine turned to off during interview with stable blood pressures. Can resume overnight if necessary.
-obtaining post-op labs
Essential HTN
-hold READING TUTOR Amlodipine, Olmesartan-HCTZ
Paroxysmal Atrial Fibrillation
-hold READING TUTOR Coumadin
-continue READING TUTOR digoxin
-F/U Dig level
BPH - READING TUTOR Flomax
HLD - resume statin when diet resumed
DM II
-hold READING TUTOR Metformin
- ISS low
DVT PPx Hep subQ
FULL CODE
76 minutes spent on patient care
--- NOTE | 2025-02-23 15:57 | HPS.HSE ---
Family Physician
-
Family Physician: Waldemar Palacios
Medical History
Past Medical History
Past Medical History: Reports Other
Past Surgical History: Reports Other
Allergies / Home Medications
Allergies reflects when Allergies were last updated in [employer].
Home Medications with original date entered in [employer]
Physical Exam
Vital Signs
Vital Signs
Temp Pulse Resp BP Pulse Ox
98.6 F 75 15 135/63 99
02/23/25 15:11 02/23/25 15:21 02/23/25 15:21 02/23/25 15:21 02/23/25 15:21
Laboratory Results
-
02/13/25 07:37
02/13/25 07:37
Laboratory Results
PT 25.4 Sec (11.4-14.6) H 02/13/25 07:37
INR 2.31 02/13/25 07:37
APTT 41.1 Sec (23.4-35.0) H 02/13/25 07:37
Total Bilirubin 0.8 mg/dl (0.2-1.3) 02/13/25 07:37
AST 18 U/L (17-59) 02/13/25 07:37
ALT 16 U/L (0-50) 02/13/25 07:37
Alkaline Phosphatase 72 U/L (38-126) 02/13/25 07:37
Impression/Plan
-
IMPRESSION:
PLAN:
--- NOTE | 2025-02-23 16:10 | CON.HOSP ---
Family Physician
-
Family Physician: Waldemar Palacios
Chief Complaint
-
Postop hypotension
History of Present Illness
84-year-old male in PACU status post partial gastrectomy Niecy-en-Y surgery today 02/23/[address] Elizondo. Postop surgery patient was hypotensive with BP 75/40 requiring IV phenylephrine drip however blood pressure is slowly improving to systolic 140.
Patient is awake alert oriented x 3 denies dizziness, headache, fever, chills, chest pain, shortness of breath, abdominal pain, nausea, vomiting, diarrhea. He has NG tube out of his left naris draining sanguinous drainage. He has a dressing intact
over the ventral abdomen with positive bowel sounds. He was recently diagnosed with a gastrointestinal stromal tumor involving his stomach had prior admission with melatonic stool and anemia subsequent CT showing a large rounded mass within the
gastric lumen he had EGD and biopsy which was consistent with gastrointestinal stromal tumor.
Patient with past medical history of A-fib, TIA, osteoporosis, HTN, DM2, BPH, recent gastrointestinal stromal tumor
Medical History
Past Medical History
Past Medical History: Reports Other
Additional Past Medical History:
A-fib
TIA
osteoporosis
HTN
DM2
BPH
recent gastrointestinal stromal tumor
Past Surgical History: Reports Other
Additional Past Surgical History:
status post partial gastrectomy Niecy-en-Y surgery today 02/23/[address] Elizondo.�Gastrointestinal stromal tumor
Social History
Tobacco: Non-smoker
Alcohol: None
Employment: Retired
Family History
Family History: Other (Father history of lung CA smoker and coal cager also cirrhosis age 47 Brother history of prostate cancer )
Allergies / Home Medications
Allergies reflects when Allergies were last updated in [employer].
Home Medications with original date entered in [employer]
Allergy/Medication List:
Allergies
Allergy/AdvReac Type Severity Reaction Status Date / Time
doxazosin (From Cardura) Allergy 'Heart Verified 02/23/25 10:36
Issues';
stroke
like
symptoms
Home Medications
amlodipine 10 mg tablet (Norvasc) 10 mg PO HS Blood Pressure 01/04/25
atorvastatin 10 mg tablet (Lipitor) 10 mg PO QPM High Cholesterol 01/04/25
cyanocobalamin (vitamin B-12) 1,000 mcg tablet 1,000 mcg PO DAILY Supplement 01/04/25
digoxin 250 mcg (0.25 mg) tablet 250 mcg PO QPM Heart Disease/Condition 01/04/25
metformin 500 mg tablet,extended release 24 hr 500 mg PO TID Gastrointestinal Issue 01/04/25
olmesartan 40 mg-hydrochlorothiazide 25 mg tablet (Benicar HCT) 1 tab PO DAILY Blood Pressure 01/04/25
tamsulosin 0.4 mg capsule (Flomax) 0.4 mg PO QPM Urinary Issue 01/04/25
vitamin B complex 1 tab PO DAILY Supplement 01/04/25
fluticasone propionate 50 mcg/actuation nasal spray,suspension (Flonase Allergy Relief) 2 spray intranasal DAILY PRN Nasal Congestion 02/20/25
warfarin 5 mg tablet 5 mg PO DAILY Blood Clot Prevention/Tx 02/20/25
Review of Systems
-
History Source: Patient
A 12 point Review of Systems was completed except as noted: Yes
Constitutional: Denies Fever or Chills
EENT: Denies Sore Throat or Runny Nose
Respiratory: Denies Cough or Trouble Breathing
Cardiac: Denies Chest Pain, Diaphoresis or Palpitations
Abdomen/GI: Denies Abdominal Pain, Nausea or Vomiting
: Denies Flank Pain
Musculoskeletal: Denies Joint Pain or Edema
Skin: Denies Itching or Rash
Neurological: Denies Dizzy or Headache
Endocrine: Reports No Symptoms
Hematologic/Lymphatic: Reports No Symptoms
Psych: Reports Calm
Physical Exam
Vital Signs
Vital Signs
Temp Pulse Resp BP Pulse Ox
98.6 F 85 13 115/68 100
02/23/25 15:11 02/23/25 16:00 02/23/25 16:00 02/23/25 16:00 02/23/25 16:00
Physical Exam
General: Negative Fever or Chills
HEENT: Normocephalic, Anicteric, PERRLA and Other (NG tube out of left nare draining sanguinous drainage scant amount)
Respiratory: Clear; Negative Wheezes, Rales or Rhonchi
Cardiac: S1/S2 and Regular Rhythm; Negative Murmur, Rub or Peripheral Edema
GI: Soft, Non Tender, Normal Bowel Sounds and Other (Dressing intact to ventral abdomen no surrounding drainage or erythema)
Rectal: Deferred by Provider
Musculoskeletal: No Clubbing, No Cyanosis and No Edema
Skin: Warm and Dry; Negative Rash
Neuro: AO x 3 and No Motor Deficits; Negative Slurred Speech, Facial Droop, Tremors or Sedated
Psych: Calm
Laboratory Results
-
PT 25.4 Sec (11.4-14.6) H 02/13/25 07:37
INR 2.31 02/13/25 07:37
APTT 41.1 Sec (23.4-35.0) H 02/13/25 07:37
Total Bilirubin 0.8 mg/dl (0.2-1.3) 02/13/25 07:37
AST 18 U/L (17-59) 02/13/25 07:37
ALT 16 U/L (0-50) 02/13/25 07:37
Alkaline Phosphatase 72 U/L (38-126) 02/13/25 07:37
Impression / Plan
-
Impression/plan:
Medical consultation
Admit to IMU
#Acute hypotension status post surgery requiring pressors/HTN
BP 75/40> 135/63 post IV phenylephrine
- Continue phenylephrine with titration down
-Hold olmesartan HCTZ, amlodipine 10 mg at bedtime
-Continue digoxin 250 mcg every afternoon with hold parameters, check dig level
- Check CBC, CMP
#Status post partial gastrectomy Niecy-en-Y 4 gastrointestinal stromal tumor
-Dr. Elizondo attending
- N.p.o.
- Pepcid
- Continue NG tube to suction
#DM 2
Accu-Cheks with SSI, hypoglycemia coverage
-Hold metformin 500 mg 3 times daily
#A-fib
Coumadin has been on hold since 02/17/2025
-Will defer to surgery when to resume
#BPH
Hold current Flomax due to hypotension
#TIA Hx
#Osteoporosis
DVT prophylaxis
Subcu heparin
Full code
[2025-02-23 16:40] LABS: INR 1.15; PT 15.0 Sec (11.4-14.6)
[2025-02-23 16:46] LABS: ALT (SGPT) 27 U/L (0-50); AST (SGOT) 33 U/L (17-59); Albumin 3.3 g/dl (3.5-5.0); Alkaline Phosphatase 48 U/L (38-126); Blood Urea Nitrogen 19 mg/dl (9-20); Calcium 7.6 mg/dl (8.4-10.2); Carbon Dioxide 24 mmol/L (22-30); Chloride 103 mmol/L (98-107); Estimated Creatinine Clearance 73 ml/min; Glucose 185 mg/dl (70-99); Potassium 3.2 mmol/L (3.5-5.1); Sodium 134 mmol/L (135-145); Total Protein 5.5 g/dl (6.3-8.2); eGFR > 60.00
[2025-02-23 18:05] LABS: Hematocrit 29.3 % (39.0-52.0); Hemoglobin 9.5 g/dL (13.0-18.0); Mean Corp Hgb Conc. 32.4 g/dL (33.0-37.0); Mean Corpuscular Volume 85.7 fL (80.0-94.0); Platelet Count 265 10^3/uL (130-400); Red Cell Dist. Width 22.3 % (11.5-14.5)
--- NOTE | 2025-02-23 18:17 | PTCARENOTE ---
Patient arrived to IMU from PACU. AOx3. A fib on the monitor. BP stable on 20 of dante. L nare NG tube at 63 to low interm suction. Bloody drainage from NG tube. Midline abd dressing c/d/i. Mcgowan draining yellow urine. Denies pain. Call mendosa within
reach, bed in lowest position, and bed of wheels locked.
[2025-02-23] MEDS: D5/0.9% SODIUM CHLORIDE 1000 IV (18:24)
[2025-02-23] MEDS: ANCEF 10 IV (18:25)
[2025-02-23] MEDS: NOVOLOG FLEXPEN-LOW RESISTANCE 1 UNITS SC (18:34)
[2025-02-23 18:39] LABS: Glucose - Point of Care 176 mg/dl (70-99)
[2025-02-23] MEDS: KCL 270 MEQ IV (19:29)
[2025-02-23] MEDS: NSS (PRESERVATIVE FREE) 8 ML IV (20:35)
[2025-02-23] MEDS: PEPCID 20 MG IV (20:35)
[2025-02-23] MEDS: MORPHINE SULFATE 2 MG IV (23:47)
[2025-02-23 23:51] LABS: Glucose - Point of Care 231 mg/dl (70-99)
[2025-02-24] VITALS (17 sets, daily range): BP systolic 122–169; BP diastolic 68–93; PULSE 87–144; O2SAT 97; BMI 22.6
[2025-02-24] MEDS: NOVOLOG FLEXPEN-LOW RESISTANCE 2 UNITS SC (00:08)
--- NOTE | 2025-02-24 00:13 | PTCARENOTE ---
Assumed care for patient overnight. Garry gtt infusion off as pt has maintained BP goal for 4 hours. Will monitor closely. AAOx3, pleasant. A-fib on the monitor HR 90s. L NG tube at 63cm to LIWS. Bloody drainage from NG tube. Midline abdominal
dressing is C/D/I. Mcgowan intact draining clear yellow urine. Pt remains on RA, 97%. Pt c/o moderate pain to lower abdomen, PRN Morphine administered, see MAR. Call mendosa is within reach.
[2025-02-24] MEDS: ANCEF 10 IV ×3 (02:34→17:29)
[2025-02-24] MEDS: D5/0.9% SODIUM CHLORIDE 1000 IV (04:43)
[2025-02-24 05:40] LABS: Blood Urea Nitrogen 19 mg/dl (9-20); Calcium 8.0 mg/dl (8.4-10.2); Carbon Dioxide 26 mmol/L (22-30); Chloride 103 mmol/L (98-107); Digoxin 0.7 ng/ml (0.8-2.0); Estimated Creatinine Clearance 63 ml/min; Glucose 239 mg/dl (70-99); Magnesium 1.7 mg/dl (1.6-2.3); Potassium 4.0 mmol/L (3.5-5.1); Sodium 135 mmol/L (135-145); eGFR > 60.00
[2025-02-24 06:10] LABS: Hematocrit 29.6 % (39.0-52.0); Hemoglobin 9.2 g/dL (13.0-18.0); Mean Corp Hgb Conc. 31.1 g/dL (33.0-37.0); Mean Corpuscular Volume 83.4 fL (80.0-94.0); Platelet Count 249 10^3/uL (130-400); Red Cell Dist. Width 22.1 % (11.5-14.5)
[2025-02-24] MEDS: NOVOLOG FLEXPEN-LOW RESISTANCE 3 UNITS SC (06:21)
[2025-02-24 06:31] LABS: Glucose - Point of Care 250 mg/dl (70-99)
--- NOTE | 2025-02-24 08:13 | PTCARENOTE ---
Received report from night RN. Patient AAOx3. NG tube left nare to intermittent wall suction. No irrigation noted MD order. Patient reports incisional pain is tolerable /. Patient reports throat pain. Strict NPO. Afib on monitor.
--- NOTE | 2025-02-24 08:57 | W.PN.GENERIC ---
Assessment / Plan
-
S/p Partial gastrectomy POD #1
Stable
Keep pt strict NPO of anther 24 hrs.
If continues to do well, hope to remove the NGT tomorrow
Ok to clamp NGT while ambulating
Continue IVF
Tsf pt to the surgical floor
Await path report
Physician Progress Note
Subjective
c/o sore throat from NGT. O/w good pain control
Objective
Vital Signs
Temp Pulse Resp BP Pulse Ox
97.8 F 95 16 143/76 97
02/24/25 03:00 02/24/25 08:00 02/24/25 08:00 02/24/25 08:00 02/24/25 08:13
Lab Results
02/24/25 04:40
02/24/25 04:40
Abdomen is soft, ND. Dsg intact
[2025-02-24] MEDS: HEPARIN 5000 UNITS SC ×2 (09:17→20:05)
[2025-02-24] MEDS: NSS (PRESERVATIVE FREE) 8 ML IV ×2 (09:17→20:04)
[2025-02-24] MEDS: PEPCID 20 MG IV ×2 (09:18→20:04)
[2025-02-24] MEDS: MORPHINE SULFATE 2 MG IV ×2 (09:21→21:42)
[2025-02-24 09:39] LABS: Glycohemoglobin (HgbA1c) 6.2 % (4.0-5.9)
[2025-02-24 10:00] LABS: Iron < 20 ug/dl (49-181)
[2025-02-24 10:01] LABS: Total Iron Binding Capacity 332 ug/dl (261-462)
--- NOTE | 2025-02-24 10:13 | CM ---
Patient s/p partial gastrectomy by Dr. Elizondo on February 23, 2025. He has NG tube. Met patient and in room. Patient nodded his head it irratates his throat. He nodded it was ok for CM to talk to who is at bedside. He and live in 1
level home with 2 steps to enter. He has tub grab bar, shower chair. He has not been to a SNF or had home care.
PCP Dr. Waldemar Palacios
Pharmacy: [facility]
Plan: home with outpatient follow up.
[2025-02-24] MEDS: NSS 1000 IV ×3 (10:53→21:43)
[2025-02-24] MEDS: LANTUS 0.05 UNITS SC (10:53)
[2025-02-24] MEDS: MAGNESIUM SULFATE 102 GRAMS IV (10:53)
[2025-02-24] MEDS: FLUSH (NSS) 1 FLUSH IV ×3 (10:54→14:31)
[2025-02-24 11:10] LABS: Vitamin D, 25-OH*** 34.5 ng/mL (30-80)
[2025-02-24 11:28] LABS: Ferritin 89.5 ng/ml (17.9-464.0)
--- NOTE | 2025-02-24 11:38 | W.PN.HOSP.TC ---
Today's Communication/Plan
-
N.p.o. with IV fluids
Cannot do LR because of digoxin therefore changed to normal saline as sugars were elevated
Lantus 5 units plus sliding scale coverage
NG tube
Medicines which can be given through IV changed.
IV iron
Assessment / Plan
Assessment / Plan
84-year-old man with a gastric tumor which showed GIST status post partial gastrectomy by Dr. Elizondo on 02/23/2025. Postoperative course was complicated by hypotension. Postoperative blood loss estimated was to 70 mL. Patient required phenylephrine
postoperatively we were consulted.
Patient awake and alert
Cardiovascular system S1-S2 S2 appreciated
Chest clear to auscultation
Abdomen midline laparotomy wound, no bowel sounds
NG tube
No pedal edema
Neuro nonfocal
# Shock/hypotension-secondary to medications [id number] antihypertensives. Wean pressors as tolerated
# Status post partial gastrectomy for GIST tumor on 02/23/[address] Elizondo. NPO, IVF, NGT
# Chronic anemia-hemoglobin stable since January. Iron studies indicate iron deficiency. IV iron ordered
# History of essential hypertension-was on amlodipine, olmesartan hydrochlorothiazide as outpatient. Hold
# Hyponatremia-better
# Hypokalemia-better
# Paroxysmal atrial fibrillation-continue digoxin. Hold anticoagulation given recent surgery. Resume when safe to do so per surgeon
# Hyperlipidemia-hold statin while n.p.o.
# Diabetes type 2-hemoglobin A1c-
Hold metformin. Continue Accu-Cheks and sliding scale coverage
Add low-dose of Lantus now while NPO-5 units ordered
Change fluids to Fluids with out dextrose. Cannot give LR because of digoxin. Will use normal saline
# Enlarged prostate-hold Flomax while NPO. Bladder scan as needed
# History of TIA
# Diverticulosis
# DVT prophylaxis-subcutaneous heparin
# Full code
Discussed with Dr. Rawls
Discussed with nursing at BED SIDE
Part of this note was created using voice recognition system. Occasional wrong word or��sound alike� substitutions may have inadvertently occurred due to the inherent limitations of voice recognition software. If noted kindly bring it to my
attention for correction.
Anticipated Discharge: > 48 hours
Subjective/Interval History
-
Date of Service: February 24, 2025
Objective Data
-
Labs:
Laboratory Results
02/24/25
04:40
WBC 9.6
Hgb 9.2 L
Hct 29.6 L
Plt Count 249
Sodium 135
Potassium 4.0
Chloride 103
Carbon Dioxide 26
BUN 19
Creatinine 0.8
Glucose 239 H
Calcium 8.0 L
Vital Signs:
Vital Signs
Temp Pulse Resp BP Pulse Ox
98.1 F 95 16 143/76 97
02/24/25 07:05 02/24/25 08:00 02/24/25 08:00 02/24/25 08:00 02/24/25 08:13
I&O
02/23/25 02/24/25 02/25/25
06:59 06:59 06:59
Intake Total 2270 / 2270
Output Total 1535 / 1735 200 / 200
Balance 735 / 535 -200 / -200
[2025-02-24 11:43] LABS: Vitamin B12 425 pg/ml (239-931)
[2025-02-24 12:00] LABS: Glucose - Point of Care 198 mg/dl (70-99)
[2025-02-24] MEDS: NOVOLOG FLEXPEN-LOW RESISTANCE 1 UNITS SC (12:30)
[2025-02-24] MEDS: LANOXIN 250 MCG IV (12:31)
[2025-02-24] MEDS: CHLORASEPTIC/SORE THROAT SPRAY 1 SPRAY PO ×2 (12:59→17:52)
[2025-02-24] MEDS: D5/0.9% SODIUM CHLORIDE IV (13:18)
[2025-02-24] MEDS: FERRLECIT 110 MG IV (14:30)
--- NOTE | 2025-02-24 16:01 | PTCARENOTE ---
Report given to Shanel QUINTERO. Patient transferred to [address] [place] [address] [phone]. All belongings with the patient.
--- NOTE | 2025-02-24 16:36 | PTCARENOTE ---
pt arrived from IMU, Aox3 pleasant. requested RAC pulled even though flushed with no difficulty and explained may need a new with current hospital stay, would like out. NGT 60cm reinserted to 62cm while changing nasal dressing. oral care provided,
no n/v NGT to LIWS. no flush, strict NPO. mendosa low call mendosa in reach. pain controlled at time
[2025-02-24 17:15] LABS: Glucose - Point of Care 143 mg/dl (70-99)
[2025-02-24] MEDS: NOVOLOG FLEXPEN-LOW RESISTANCE SC (17:30)
[2025-02-24 23:17] LABS: Glucose - Point of Care 126 mg/dl (70-99)
[2025-02-25] MEDS: NOVOLOG FLEXPEN-LOW RESISTANCE SC ×4 (00:05→17:39)
[2025-02-25 03:41] VITALS: BP 164/80
[2025-02-25 05:55] LABS: Glucose - Point of Care 122 mg/dl (70-99)
[2025-02-25] MEDS: MORPHINE SULFATE 2 MG IV ×2 (06:02→09:55)
[2025-02-25] MEDS: NSS 1000 IV ×3 (06:03→23:07)
[2025-02-25 07:22] LABS: Blood Urea Nitrogen 13 mg/dl (9-20); Calcium 8.0 mg/dl (8.4-10.2); Carbon Dioxide 27 mmol/L (22-30); Chloride 108 mmol/L (98-107); Estimated Creatinine Clearance 72 ml/min; Glucose 115 mg/dl (70-99); Magnesium 2.0 mg/dl (1.6-2.3); Potassium 3.5 mmol/L (3.5-5.1); Sodium 138 mmol/L (135-145); eGFR > 60.00
[2025-02-25 07:30] VITALS: BP 152/80
[2025-02-25 08:02] LABS: Hematocrit 28.1 % (39.0-52.0); Hemoglobin 8.8 g/dL (13.0-18.0); Mean Corp Hgb Conc. 31.3 g/dL (33.0-37.0); Mean Corpuscular Volume 83.6 fL (80.0-94.0); Platelet Count 226 10^3/uL (130-400); Red Cell Dist. Width 22.5 % (11.5-14.5)
[2025-02-25] MEDS: NSS (PRESERVATIVE FREE) 8 ML IV ×2 (09:47→23:07)
[2025-02-25] MEDS: PEPCID 20 MG IV ×2 (09:49→23:07)
[2025-02-25] MEDS: HEPARIN 5000 UNITS SC ×2 (09:53→21:44)
--- NOTE | 2025-02-25 11:12 | W.PN.GENERIC ---
Assessment / Plan
-
S/p partial gastrectomy POD #2
Continues to do well.
NGT pulled. Will keep pt NPO without NGT overnight.
If continues to do well, will start liquid diet tomorrow
OOB and ambulate
Await final pathology
Physician Progress Note
Subjective
No problems overnight. Good pain control. No N/V while NGT clamped for 3 hours
Objective
Vital Signs
Temp Pulse Resp BP Pulse Ox
97.9 F 77 16 152/80 96
02/25/25 07:30 02/25/25 07:30 02/25/25 07:30 02/25/25 07:30 02/25/25 07:30
Lab Results
02/25/25 06:37
02/25/25 06:37
Abd - soft, ND, NT. Incision - CDI
NGT residual after 3 hrs of clamp was about 75cc
[2025-02-25 11:20] VITALS: BP 152/71
--- NOTE | 2025-02-25 12:05 | W.PN.HOSP.TC ---
Today's Communication/Plan
-
NG tube removed
N.p.o. with IV fluids
IV medicines for now
If blood sugars are over 180 will do a dose of Lantus otherwise to start insulin coverage
Encourage ambulation and incentive spirometry
Assessment / Plan
Assessment / Plan
84-year-old man with a gastric tumor which showed GIST status post partial gastrectomy by Dr. Elizondo on 02/23/2025. Postoperative course was complicated by hypotension. Postoperative blood loss estimated was to 70 mL. Patient required phenylephrine
postoperatively we were consulted.
Patient awake and alert
Cardiovascular system S1-S2 S2 appreciated
Chest clear to auscultation
Abdomen midline laparotomy wound, no bowel sounds
No pedal edema
Neuro nonfocal
# Shock/hypotension-secondary to medications [id number]-Abq pressors
# Status post partial gastrectomy for GIST tumor on 02/23/[address] Elizondo. NPO, IVF, NGT removed 02/25/25
# Chronic anemia-hemoglobin stable since January. Iron studies indicate iron deficiency. IV iron ordered
# History of essential hypertension-was on amlodipine, olmesartan hydrochlorothiazide as outpatient. Hold. IV hydralazine
# Hyponatremia-better
# Hypokalemia-better
# Paroxysmal atrial fibrillation-continue digoxin. Hold anticoagulation given recent surgery. Resume when safe to do so per surgeon
# Hyperlipidemia-hold statin while n.p.o.
# Diabetes type 2-hemoglobin A1c-6.2
Hold metformin. Continue Accu-Cheks and sliding scale coverage
Accuchecks and SSI.
If sugars are above 180 will give a dose of Lantus today
# Enlarged prostate-hold Flomax while NPO. Bladder scan as needed
# History of TIA-restart anticoagulation when okay with surgeon. Still having burgundy output from NG tube
# Diverticulosis
# DVT prophylaxis-subcutaneous heparin
# Full code
Discussed with nursing at BED SIDE
Part of this note was created using voice recognition system. Occasional wrong word or��sound alike� substitutions may have inadvertently occurred due to the inherent limitations of voice recognition software. If noted kindly bring it to my
attention for correction.
Anticipated Discharge: > 48 hours
Subjective/Interval History
-
Date of Service: February 25, 2025
Objective Data
-
Labs:
Laboratory Results
02/25/25
06:37
WBC 7.5
Hgb 8.8 L
Hct 28.1 L
Plt Count 226
Sodium 138
Potassium 3.5
Chloride 108 H
Carbon Dioxide 27
BUN 13
Creatinine 0.7
Glucose 115 H
Calcium 8.0 L
Vital Signs:
Vital Signs
Temp Pulse Resp BP Pulse Ox
98.1 F 81 16 152/71 97
02/25/25 11:20 02/25/25 11:20 02/25/25 11:20 02/25/25 11:20 02/25/25 11:20
I&O
02/24/25 02/25/25 02/26/25
06:59 06:59 06:59
Intake Total 2270 / 2270 2875 / 2875
Output Total 1535 / 1735 2370 / 2370
Balance 735 / 535 505 / 505
[2025-02-25] MEDS: LANOXIN 250 MCG IV (12:54)
[2025-02-25] MEDS: FERRLECIT 110 MG IV (12:55)
[2025-02-25 12:56] LABS: Glucose - Point of Care 103 mg/dl (70-99)
[2025-02-25 15:30] VITALS: BP 153/83
[2025-02-25 17:37] LABS: Glucose - Point of Care 130 mg/dl (70-99)
[2025-02-25 19:00] VITALS: BP 156/81
[2025-02-25 23:00] VITALS: BP 173/86
[2025-02-25] MEDS: APRESOLINE 5 MG IV (23:08)
[2025-02-25 23:44] LABS: Glucose - Point of Care 121 mg/dl (70-99)
[2025-02-26] VITALS (7 sets, daily range): BP systolic 137–163; BP diastolic 64–99; PULSE 59; O2SAT 99; BMI 22.6
[2025-02-26] MEDS: NOVOLOG FLEXPEN-LOW RESISTANCE SC ×3 (00:32→12:03)
[2025-02-26 06:34] LABS: Glucose - Point of Care 111 mg/dl (70-99)
[2025-02-26 07:20] LABS: Blood Urea Nitrogen 14 mg/dl (9-20); Carbon Dioxide 23 mmol/L (22-30); Chloride 108 mmol/L (98-107); Estimated Creatinine Clearance 72 ml/min; Sodium 135 mmol/L (135-145); eGFR > 60.00
[2025-02-26 07:31] LABS: Calcium 8.4 mg/dl (8.4-10.2); Glucose 105 mg/dl (70-99); Potassium 3.4 mmol/L (3.5-5.1)
--- NOTE | 2025-02-26 07:41 | W.PN.GENERIC ---
Assessment / Plan
-
S/p partial gastrectomy POD #3
Continues to do well without NGT
Will start clear liquids and advance diet slowly as gurdeep
Left forearm thrombophlebitis
Warm compress to the area
Stare IV toradol (also for pain)
Will give Ancef x 24 hrs
OOB and ambulate.
Physician Progress Note
Subjective
Feeling well. + flatus. No c/os except for pain involving the old left forearm IV site
Objective
Vital Signs
Temp Pulse Resp BP Pulse Ox
97.9 F 76 18 142/64 98
02/26/25 03:00 02/26/25 03:00 02/26/25 03:00 02/26/25 03:00 02/26/25 03:00
Lab Results
02/26/25 06:07
Abdomen - soft, ND. Incision - CDI
Left forearm with some erythema involving the old IV site
[2025-02-26 08:08] LABS: Hematocrit 28.3 % (39.0-52.0); Hemoglobin 8.5 g/dL (13.0-18.0); Mean Corp Hgb Conc. 30.0 g/dL (33.0-37.0); Mean Corpuscular Volume 85.5 fL (80.0-94.0); Platelet Count 235 10^3/uL (130-400); Red Cell Dist. Width 21.3 % (11.5-14.5)
[2025-02-26] MEDS: NSS (PRESERVATIVE FREE) 8 ML IV ×2 (09:32→19:59)
[2025-02-26] MEDS: ANCEF 10 IV ×2 (09:37→17:34)
[2025-02-26] MEDS: PEPCID 20 MG IV ×2 (09:39→20:00)
[2025-02-26] MEDS: TORADOL 15 MG IV ×3 (09:39→20:00)
[2025-02-26] MEDS: HEPARIN 5000 UNITS SC ×2 (09:39→19:57)
[2025-02-26] MEDS: NSS IV ×2 (10:14→17:41)
[2025-02-26] MEDS: KCL 20 MEQ PO (11:07)
[2025-02-26] MEDS: LANOXIN 250 MCG IV (11:08)
[2025-02-26 11:59] LABS: Glucose - Point of Care 132 mg/dl (70-99)
--- NOTE | 2025-02-26 13:10 | W.PN.HOSP.TC ---
Today's Communication/Plan
-
see bold
Assessment / Plan
Assessment / Plan
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 Elizondo on 02/23/2025. Postoperative course was complicated by hypotension. Postoperative blood loss estimated was to 70 mL. Patient required
phenylephrine postoperatively we were consulted.
# Shock/hypotension-secondary to medications [id number]-Sjf pressors
# Status post partial gastrectomy for GIST tumor on 02/23/[address] Elizondo. NGT removed 02/25/25, for clear liquids today
# Chronic anemia-hemoglobin stable since January. Iron studies indicate iron deficiency. S/p IV iron. Rec oral iron upon dc
# History of essential hypertension-was on amlodipine, olmesartan hydrochlorothiazide as outpatient. Resume amlodipine and olmesartan
# Hyponatremia-resolved
# Hypokalemia-replete
# Paroxysmal atrial fibrillation-continue digoxin. Hold anticoagulation given recent surgery. Resume when safe to do so per surgeon
# Hyperlipidemia-resume statin
# Diabetes type 2-hemoglobin A1c-6.2
Hold metformin. Continue Accu-Cheks and sliding scale coverage
Accuchecks and SSI.
# Enlarged prostate-resume flomax. Bladder scan as needed
# History of TIA-restart anticoagulation when okay with surgeon.
# Diverticulosis
DVT prophylaxis-subcutaneous heparin
Full code
Updated at bedside 02/26
Total time spent to see the patient on the floor, examine the patient, review data and lab results, discuss treatment plan with patient, nursing staff around 50 minutes.
Physical Exam
General: No acute distress
HEENT: Normocephalic, Atraumatic, EOMI, MMM
Respiratory: Clear to Auscultation bilaterally
Cardiac: Normal S1/S2, Regular Rate and Rhythm
GI: Soft, nondistended, zulma-incisional tenderness noted, incision clean/dry/intact
Extremities: No Clubbing, Cyanosis, or Edema
Neuro: Nonfocal/Grossly Intact
Psych: Calm, Cooperative
Anticipated Discharge: 24 - 48 hours
Subjective/Interval History
-
Date of Service: February 26, 2025
Patient denies abdominal pain. Denies chest pain, shortness of breath. No fever, no vomiting. He is passing gas, no stools.
Objective Data
-
Labs:
Laboratory Results
02/26/25
06:07
WBC 5.5
Hgb 8.5 L
Hct 28.3 L
Plt Count 235
Sodium 135
Potassium 3.4 L
Chloride 108 H
Carbon Dioxide 23
BUN 14
Creatinine 0.7
Glucose 105 H
Calcium 8.4
Vital Signs:
Vital Signs
Temp Pulse Resp BP Pulse Ox
98.1 F 90 18 162/99 97
02/26/25 12:00 02/26/25 12:00 02/26/25 12:00 02/26/25 12:00 02/26/25 12:00
I&O
02/25/25 02/26/25 02/27/25
06:59 06:59 06:59
Intake Total 2875 / 2875
Output Total 2370 / 2370 725 / 725
Balance 505 / 505 -725 / -725
[2025-02-26] MEDS: ZESTRIL 20 MG PO (14:58)
[2025-02-26] MEDS: FLOMAX 0.4 MG PO (15:02)
--- NOTE | 2025-02-26 16:57 | CM ---
Chart reviewed; Anticipated Discharge: 24 - 48 hours. PT recommends Home Health
[2025-02-26 17:28] LABS: Glucose - Point of Care 164 mg/dl (70-99)
[2025-02-26] MEDS: LIPITOR 10 MG PO (17:35)
[2025-02-26] MEDS: NOVOLOG FLEXPEN-LOW RESISTANCE 1 UNITS SC (17:35)
[2025-02-26 21:19] LABS: Glucose - Point of Care 148 mg/dl (70-99)
[2025-02-26] MEDS: NORVASC 10 MG PO (21:50)
[2025-02-27] MEDS: ANCEF 10 IV ×2 (00:34→09:34)
--- NOTE | 2025-02-27 00:59 | W.PN.UPDATE ---
Update Note
Progress Note Update
-Patent noted on tele with bradycardia hr in 40s and pauses up to 3.4 sec at night, asymptomatic. bp 113/66 SPO2 98% on RA. No PMH of sleep apnea.
-Patient with history of a-fib and currently on digoxin.
-EKG ordered
-Will check digoxin level
-Supplemental oxygen at night and will monitor.
-Will continue tele services
--- NOTE | 2025-02-27 02:05 | PTCARENOTE ---
Addendum entered by Luisa Muhammad RN 02/27/25 05:19:
@0512 pt had 3.72 pause. [employer] notified and aware.
Original Note:
Pt school lunch monitor showing afib with pauses ranging from 2.12 sec to 3.2; BP 113/66 HR 72 O2 98. pt asymptomatic. [employer]EN[employer]SE STAFF notified. New orders given. EKG completed. AM labs ordered. Care ongoing.
[2025-02-27] MEDS: TORADOL 15 MG IV ×3 (02:18→15:29)
[2025-02-27 03:00] VITALS: BP 148/84
[2025-02-27 07:35] VITALS: BP 153/83
[2025-02-27 08:30] LABS: Blood Urea Nitrogen 13 mg/dl (9-20); Calcium 8.8 mg/dl (8.4-10.2); Carbon Dioxide 25 mmol/L (22-30); Chloride 105 mmol/L (98-107); Digoxin 0.8 ng/ml (0.8-2.0); Estimated Creatinine Clearance 72 ml/min; Glucose 121 mg/dl (70-99); Magnesium 2.0 mg/dl (1.6-2.3); Potassium 3.7 mmol/L (3.5-5.1); Sodium 133 mmol/L (135-145); eGFR > 60.00
--- NOTE | 2025-02-27 08:47 | W.PN.HOSP.TC ---
Today's Communication/Plan
-
Possible discharge today as per primary
Assessment / Plan
Assessment / Plan
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 Elizondo on 02/23/2025. Postoperative course was complicated by hypotension. Postoperative blood loss estimated was to 70 mL. Patient required
phenylephrine postoperatively we were consulted.
# Shock/hypotension-secondary to medications tdwsxi-[id number]-Olk pressors
# Status post partial gastrectomy for GIST tumor on 02/23/[address] Elizondo. NGT removed 02/25/25, tolerating a soft diet. No objections to discharge today as per primary
# Chronic anemia-hemoglobin stable since January. Iron studies indicate iron deficiency. S/p IV iron. Rec ferrous sulfate 325 mg every other day upon discharge
# History of essential hypertension-was on amlodipine, olmesartan hydrochlorothiazide as outpatient. Resumed amlodipine and lisinopril to substitute for olmesartan
# Paroxysmal atrial fibrillation-continue digoxin. Patient had nocturnal bradycardia with 3.4-second pause. He was asymptomatic. Patient reports that his usual funeral location manager Dr. Lenny Burris is aware of this. Digoxin level is therapeutic at 0.8.
He has been instructed to follow-up with his usual funeral location manager. Resume warfarin when okay with surgeon.
# Hyponatremia-resolved
# Hypokalemia-replete
# Paroxysmal atrial fibrillation-continue digoxin. Hold anticoagulation given recent surgery. Resume when safe to do so per surgeon
# Hyperlipidemia-resumed statin
# Diabetes type 2-hemoglobin A1c-6.2
Hold metformin. Continue Accu-Cheks and sliding scale coverage
Accuchecks and SSI.
# Enlarged prostate-resumed flomax. Bladder scan as needed
# History of TIA-Resume warfarin when okay with surgeon.
# Diverticulosis
DVT prophylaxis-subcutaneous heparin
Full code
Updated at bedside 02/26
Total time spent to see the patient on the floor, examine the patient, review data and lab results, discuss treatment plan with patient, nursing staff around 40 minutes.
Physical Exam
General: No acute distress
HEENT: Normocephalic, Atraumatic, EOMI, MMM
Respiratory: Clear to Auscultation bilaterally
Cardiac: Normal S1/S2, Regular Rate and Rhythm
GI: Soft, nondistended, zulma-incisional tenderness noted, incision clean/dry/intact
Extremities: No Clubbing, Cyanosis, or Edema
Neuro: Nonfocal/Grossly Intact
Psych: Calm, Cooperative
Anticipated Discharge: Today
Subjective/Interval History
-
Date of Service: February 27, 2025
Overnight events noted. Patient was bradycardic in the 40s with a 3.4-second pause while sleeping. He denies any symptoms, and was awoken. He denies chest pain, denies shortness of breath, denies lightheadedness, denies dizziness. No fever, no
vomiting. Is passing gas, and tolerating his solids.
Objective Data
-
Labs:
Laboratory Results
02/27/25
07:05
WBC Pending
Hgb Pending
Hct Pending
Plt Count Pending
Sodium 133 L
Potassium 3.7
Chloride 105
Carbon Dioxide 25
BUN 13
Creatinine 0.7
Glucose 121 H
Calcium 8.8
Vital Signs:
Vital Signs
Temp Pulse Resp BP Pulse Ox
98.2 F 64 18 148/84 99
02/27/25 03:00 02/27/25 03:00 02/27/25 03:00 02/27/25 03:00 02/27/25 03:00
I&O
02/26/25 02/27/25 02/28/25
06:59 06:59 06:59
Output Total 725 / 725 250 / 250
Balance -725 / -725 -250 / -250
[2025-02-27] MEDS: NSS IV (09:26)
[2025-02-27] MEDS: NOVOLOG FLEXPEN-LOW RESISTANCE SC (09:29)
[2025-02-27] MEDS: ZESTRIL 20 MG PO (09:32)
[2025-02-27] MEDS: FLOMAX 0.4 MG PO (09:32)
[2025-02-27] MEDS: HEPARIN 5000 UNITS SC (09:33)
[2025-02-27] MEDS: PEPCID 20 MG IV (09:34)
[2025-02-27] MEDS: NSS (PRESERVATIVE FREE) 8 ML IV (09:34)
[2025-02-27 10:06] LABS: Hematocrit 27.3 % (39.0-52.0); Hemoglobin 8.5 g/dL (13.0-18.0); Mean Corp Hgb Conc. 31.1 g/dL (33.0-37.0); Mean Corpuscular Volume 82.0 fL (80.0-94.0); Platelet Count 242 10^3/uL (130-400); Red Cell Dist. Width 21.4 % (11.5-14.5)
[2025-02-27 11:45] VITALS: BP 143/79
[2025-02-27 12:08] LABS: Glucose - Point of Care 168 mg/dl (70-99)
[2025-02-27] MEDS: LANOXIN 250 MCG IV (12:32)
[2025-02-27] MEDS: NOVOLOG FLEXPEN-LOW RESISTANCE 1 UNITS SC (12:35)
--- NOTE | 2025-02-27 13:26 | CM ---
S/P gastric tumor, post partial gastrectomy 02/23/2025. Discharge POC: Therapy recommendation for HH. [facility] for RN, PT/OT services.
[2025-02-27 14:20] VITALS: BP 164/82; PULSE 76
--- NOTE | 2025-02-27 15:03 | W.DS.TRANS ---
DC Summary - Manager Cardiac Cath
-
Discharge Instructions:
Sleep Apnea Risk Low
Discharge Diagnosis/Procedures Partial gastrectomy
Additional Diets soft diet
Activity No strenuous activity
Driving Restrictions No driving for 1 week
Bathing Restrictions OK to Shower
Instructions:
Stand-Alone Forms:
Changes to Home Medications: No
Discharge Medications:
DC Medications w/original date entered in [facility]
amlodipine 10 mg tablet (Norvasc) 10 mg PO HS Blood Pressure 01/04/25
atorvastatin 10 mg tablet (Lipitor) 10 mg PO QPM High Cholesterol 01/04/25
cyanocobalamin (vitamin B-12) 1,000 mcg tablet 1,000 mcg PO DAILY Supplement 01/04/25
digoxin 250 mcg (0.25 mg) tablet 250 mcg PO QPM Heart Disease/Condition 01/04/25
metformin 500 mg tablet,extended release 24 hr 500 mg PO TID Gastrointestinal Issue 01/04/25
olmesartan 40 mg-hydrochlorothiazide 25 mg tablet (Benicar HCT) 1 tab PO DAILY Blood Pressure 01/04/25
tamsulosin 0.4 mg capsule (Flomax) 0.4 mg PO QPM Urinary Issue 01/04/25
vitamin B complex 1 tab PO DAILY Supplement 01/04/25
fluticasone propionate 50 mcg/actuation nasal spray,suspension (Flonase Allergy Relief) 2 spray intranasal DAILY PRN Nasal Congestion 02/20/25
warfarin 5 mg tablet 5 mg PO DAILY Blood Clot Prevention/Tx 02/20/25
Home Medication Changes
Pending Results: No
[2025-02-27 15:28] VITALS: BP 129/70
--- NOTE | 2025-02-27 16:32 | CM ---
Patient has been medically cleared for discharge to home with [facility] RN, PT/OT services. Patient arranged for transport home.
--- NOTE | 2025-03-04 12:55 | OR.RPT ---
Operative Report
Operative Report
Date of Operation: February 23, 2025
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
Postoperative Diagnosis: Same
Surgeon: Ambrocio Elizondo M.D.
Operation: Stomach Gastrectomy - [id number]
Anesthesia: General Anesthesia
Estimated Blood Loss: Minimal
Drains: None
Specimen: Gastric fundus with the tumor
Findings: A large gastric tumor
Complications: None
Procedure:
The patient was taken to the operating room and placed in the usual supine position. After adequate endotracheal anesthesia was established, the patient's abdomen was prepped and draped in the standard sterile manner.
At this time, an upper midline incision was made with a #10 blade, extending through the skin into the subcutaneous tissue. The fascia was then divided, allowing entry into the abdomen. An abdominal exploration was performed by palpating the liver,
peritoneal space, and bowel. There was no evidence of regional, intraperitoneal, or liver metastases. The area of the metabolically active lesions visualized on the PET scan, along the lesser curvature of the stomach and below the diaphragm on the
heart, was palpated without any obvious signs of lesions.
Next, the stomach was palpated, revealing a large tumor in the posterior aspect of the fundus. An anterior gastrotomy was performed to locate the tumor and evaluate whether it could be wedge resected. Due to its size, a decision was made to resect
the entire fundus to ensure clear margins. The proximal part of the stomach above the tumor was divided using an Endo TITI purple stapler. The distal part below the tumor was also resected with an Endo TITI purple stapler, and the fundus containing
the tumor was removed and sent to pathology for permanent section.
At this time, an end-to-end anastomosis was performed from the antrum to the proximal part of the stomach using an Endo GI purple stapler. An NG tube was inserted and passed through the anastomosis.
Hemostasis was achieved. The fascia was approximated with a #1 Vicryl in a running fashion. The subcutaneous tissue was approximated with #3-0 Vicryl in a running fashion. The skin was approximated with #4-0 Monocryl in a running subcuticular
fashion. Steri-Strips and sterile dressings were applied. The final instrument, needle, and sponge counts were correct. The patient was extubated and transferred to the recovery room.
--- NOTE | 2025-03-04 13:33 | W.DCSUMMARY ---
Discharge Summary
Discharge Data
Date of Admission: 02/23/25
Date of Discharge: 02/27/25
-
Pending Results: No
Hospital Course
DATE OF ADMISSION: 02/23/25
DATE OF DISCHARGE: 02/27/25
DIAGNOSIS: Gastric stromal tumor
PROCEDURE: Partial gastrectomy with Niecy-en-Y anastomosis
HISTORY OF PRESENT ILLNESS:
He is an 84-year-old man who presented for a surgical opinion regarding a recently diagnosed gastrointestinal stromal tumor involving his stomach. He was recently admitted to the hospital with melanotic stool and anemia. A subsequent CT scan showed
a large, rounded mass within the gastric lumen measuring 8.4 x 5.6 x 5.5 cm in size, which appeared to be submucosal in location. He also underwent EGD and biopsy, demonstrating findings consistent with gastrointestinal stromal tumor. He denied
abdominal pain, nausea, vomiting, or any recent weight loss. He presented for partial gastrectomy.
PAST MEDICAL HISTORY: atrial fibrillation, TIA, osteoporosis, and hypertension
ALLERGIES: no medications.
REVIEW OF SYSTEMS: Unremarkable.
SOCIAL HISTORY: No EtOH or tobacco use.
FAMILY HISTORY: Non-contributory.
PHYSICAL EXAMINATION:
He was anicteric. His head and neck examination revealed no lymphadenopathy or masses. The heart had a regular rhythm and rate. The chest was clear bilaterally. The abdomen was soft, nondistended, nontender, and without masses.
HOSPITAL COURSE:
The patient presented to the hospital and underwent uneventful surgery. Postoperatively, the patient was transferred to the surgical floor, where he recovered without any problems. On postoperative day #4, he was discharged home. The patient�s
condition on discharged was stable.
Discharge Plan
-
Patient Disposition: Home with Home Care
Discharge Diagnosis/Procedures: Partial gastrectomy
Condition: Fair
Additional Diets: soft diet
Activity: No strenuous activity
Driving Restrictions: No driving for 1 week
Bathing Restrictions: OK to Shower
Activity Restrictions/Additional Instructions:
Your heart rate while sleeping was low in the 40s, and you had a 3.4 second pause on telemetry while sleeping as well.
Your digoxin level was normal at 0.8.
Recommend you follow-up with your usual burlap worker to see if further testing or intervention is needed.
Your blood count is low. Recommend you increase eating red meat, and taking ferrous sulfate/iron supplements every other day to help you make new blood. Ferrous sulfate/iron supplements can cause constipation and dark stools. Take an
[id number] laxative as needed.
Follow-up with your primary care provider in [address] as well[address]
Call Dr. Elizondo's office for an follow-up visit. ([phone])
Referrals:
Waldemar Palacios MD [Family Provider, Internal Medicine] - in one week
Ambrocio Elizondo MD [Active, Surgical] - in two weeks
Prescriptions:
New
ferrous sulfate 325 mg (65 mg iron) tablet
325 mg PO Q OTHER DAY Qty: 30 0RF
Continued
atorvastatin [Lipitor] 10 mg Tablet
10 mg PO QPM
cyanocobalamin (vitamin B-12) 1,000 mcg Tablet
1,000 mcg PO DAILY
digoxin 250 mcg (0.25 mg) Tablet
250 mcg PO QPM
tamsulosin [Flomax] 0.4 mg Capsule
0.4 mg PO QPM
amlodipine [Norvasc] 10 mg Tablet
10 mg PO HS
vitamin B complex Tablet
1 tab PO DAILY
metformin 500 mg Tablet Extended Release 24 Hr
500 mg PO TID
olmesartan-hydrochlorothiazide [Benicar HCT] 40-25 mg Tablet
1 tab PO DAILY
warfarin 5 mg Tablet
5 mg PO DAILY
fluticasone propionate [Flonase Allergy Relief] 50 mcg/actuation [place],Suspension
2 spray INTRANASAL DAILY PRN (Reason: Nasal Congestion)
Discharge Orders:
Discharge Patient (As Directed); Ordered 02/27/25
Ordered By: Ambrocio Elizondo
Discharge Date and Time
Discharge Date/Time: 02/27/25 16:00
Print Language: BULGARIAN
== END 2025-02-27 16:00 | disposition home health service (06) | DRG 327 ==
LOC: 2 SOUTH 09:46
PROVIDERS: Hospitalist; Nurse Practitioner Family; ADMITTING PHYSICIAN Surgery; FAMILY PHYSICIAN Internal Medicine; OTHER PHYSICIAN Student in an Organized Health Care Education/Training Program
PROC: 0DB60ZZ Excision of Stomach, Open Approach (ICD-10-PCS; 2025-02-23)
PROC: 0D160ZB Bypass Stomach to Ileum, Open Approach (ICD-10-PCS; 2025-02-23)
DX: C49.A0 Gastrointestinal stromal tumor, unspecified site (principal); E87.1 Hypo-osmolality and hyponatremia; R57.9 Shock, unspecified; I95.81 Postprocedural hypotension; D64.9 Anemia, unspecified; I48.0 Paroxysmal atrial fibrillation; Z79.01 Long term (current) use of anticoagulants; E87.6 Hypokalemia; E11.9 Type 2 diabetes mellitus without complications; I48.91 Unspecified atrial fibrillation
CPT/HCPCS: 80048; 80053; 80162; 82306; 82607; 82728; 82962; 83036; 83540; 83550; 83735; 85027; 85610; 85730; 86850; 86900; 86901; 86920; 86922; 88307; 88309; 88342; 93005; 97116; 97163; 97167; 97530; C1776; J1160; J2916